=== PATIENT | female | born 1940 | race Caucasian/White ===

== ENCOUNTER 2016-11-23 22:59 | Emergency (ER) | payer MEDICARE, MEDICAID ==
[~2016-11-23] VITALS: Ht 157.5 cm; Wt 78.0 kg
[~2016-11-23 22:59] MED LIST: AMLO10TA80 PO; ASPI-1035 PO; ATOR20TA PO; BIMA2.5D4 OP; FURO40TA5 PO; GLIM4TAB2 PO; INSLIS SQ; LEVVL SQ; LINA5TAB PO; LOSA50TA20 PO; METO-300 PO; OMEP20CA10 PO
[2016-11-23] MEDS ORDERED: MORPHINE SULFATE 4 MG/ML CPJ (NOT FOR IM USE) IV STA (23:52)
[2016-11-23] MEDS ORDERED: SODIUM CHLORIDE 0.9% 1,000 ML IV ONE (23:52)
[2016-11-23] MEDS ORDERED: ONDANSETRON HCL 4MG/2ML VIAL IV STA (23:52)
[2016-11-24 00:09] LABS: BASOPHILS % 0.6 % (0.0-2.0); EOSINOPHILS % 2.7 % (0.0-5.0); HEMATOCRIT. 33.2 % (36.0-48.0); HEMOGLOBIN. 10.7 g/dL (12.0-16.0); LYMPHOCYTES % 17.6 % (20.0-50.0); MEAN CORPUSCULAR HEMOGLOBIN 28.9 pg (28.0-32.0); MEAN CORPUSCULAR HGB CONC 32.3 g/dL (31.0-37.0); MEAN CORPUSCULAR VOLUME 89.5 fL (81.0-99.0); MEAN PLATELET VOLUME 9.3 fl (7.4-10.4); MONOCYTES % 6.2 % (2.0-8.0); NEUTROPHILS % 72.9 % (40.0-76.0); PLATELET 162 x1000/uL (130-400); RED BLOOD CELL COUNT 3.71 mill/uL (4.2-5.4); RED CELL DISTRIBUTION WIDTH 20.6 % (11.6-14.6)
[2016-11-24 00:25] LABS: ALANINE AMINOTRANSFERASE 18 IU/L (13-61); ALBUMIN 3.9 g/dL (3.4-5.0); ANION GAP 13; CALCIUM 8.7 mg/dL (8.5-10.1); CARBON DIOXIDE 26 mEq/L (21-32); CHLORIDE 106 mEq/L (98-107); INDEX HEMOLYSI 1 (1-3); INDEX ICTERIC 1 (1-4); INDEX LIPEMIC 1 (1-3); LIPASE 228 IU/L (73-393); UREA NITROGEN BLOOD 29 mg/dL (7-21); eGFR 34 mL/min (>60)
[2016-11-24 00:26] LABS: PROTHROMBIN TIME 10.6 sec
[2016-11-24 00:58] LABS: CLARITY URINE CLEAR (CLEAR); COLOR URINE YELLOW (YELLOW); GLUCOSE URINE NEGATIVE (NEGATIVE); KETONES URINE NEGATIVE (NEGATIVE); LEUKOCYTE ESTERASE URINE NEGATIVE (NEGATIVE); NITRITE URINE NEGATIVE (NEGATIVE); OCCULT BLOOD URINE TRACE (NEGATIVE); PH URINE 5.5 (4.5-8.0); PROTEIN URINE 2+ (NEGATIVE); SPECIFIC GRAVITY URINE 1.016 (1.005-1.030); UROBILINOGEN URINE 0.2 E.U./dL (0.2-1.0)
[2016-11-24 01:00] LABS: BACTERIA URINE NONE SEEN; CALCIUM PHOSPHATE CRYSTALS UR NONE SEEN /lpf; RBC URINE NONE SEEN /hpf (0-2); SQUAMOUS EPITHELIAL CELL URINE NONE SEEN /lpf (RARE/1+); WAXY CASTS URINE NONE SEEN /lpf; WBC URINE 0-2 /hpf (0-2); YEAST URINE NONE SEEN
[2016-11-24] MEDS ORDERED: ALBUTEROL (0.083%) 2.5MG/3ML NEB HHN STA (02:23)
[2016-11-24] MEDS ORDERED: IPRATROPIUM BROMIDE (0.02%) 0.5MG/2.5ML NEB HHN STA (02:23)
[2016-11-24] MEDS ORDERED: MORPHINE SULFATE 4 MG/ML CPJ (NOT FOR IM USE) IV ONE (02:30)
[2016-11-24 03:31] VITALS: BP 143/58
== END 2016-11-24 03:41 | disposition home or self-care (01) ==
LOC: ER 23:01
DX: M54.5 Low back pain (principal); N28.9 Disorder of kidney and ureter, unspecified; J40 Bronchitis, not specified as acute or chronic; I73.9 Peripheral vascular disease, unspecified; I10 Essential (primary) hypertension; E11.9 Type 2 diabetes mellitus without complications; Z79.82 Long term (current) use of aspirin; Z79.4 Long term (current) use of insulin
CPT/HCPCS: 36415; 74176; 80053; 81001; 83605; 83690; 85025; 85610; 94644; 96361; 96374; 96375; 96376; 99285; J2270; J2405; J7030; J7611

== ENCOUNTER → 2017-07-31 | Day surgery (SDC) | payer MEDICARE, MEDICAID ==
[~2017-07-31] VITALS: Ht 154.9 cm; Wt 68.0 kg
[~2017-07-31] MED LIST changes: +ACETAMINOPHEN 325MG TABLET PO PRN; -ASPI-1035 PO; +ASPI-1159 PO; +FENTANYL CITRATE/PF 50MCG/ML 2ML VIAL ONE; +IODIXANOL 320MG/ML 100 ML BOTTLE IV ONE; +LIDOCAINE HCL 1% 20ML VIAL (Pyxis) INJ ONE; -METO-300 PO; +METO-411 PO; +MIDAZOLAM HCL 2 MG/2 ML VIAL ONE; +MORPHINE SULFATE 2 MG/ML CPJ (NOT FOR IM USE) IV PRN; +NIFE30TA94 PO; +ONDANSETRON HCL 4MG/2ML VIAL IV PRN
== END | disposition home or self-care (01) ==
LOC: CCL 08:02
PROVIDERS: ATTEND Specialist
DX: I70.202 Unspecified atherosclerosis of native arteries of extremities, left leg (principal); I45.10 Unspecified right bundle-branch block; I11.9 Hypertensive heart disease without heart failure; E78.5 Hyperlipidemia, unspecified; E11.51 Type 2 diabetes mellitus with diabetic peripheral angiopathy without gangrene; N28.9 Disorder of kidney and ureter, unspecified; Z79.4 Long term (current) use of insulin; Z79.82 Long term (current) use of aspirin; Z79.899 Other long term (current) drug therapy; Z79.01 Long term (current) use of anticoagulants
CPT/HCPCS: 36245; 75710; 82962; 99152; 99153; C1760; C1769; C1893; C1894; J1644; J2250; J3010; J3490; Q9967

== ENCOUNTER 2018-07-08 17:39 | Inpatient (IN) | payer MEDICARE, MEDICAID ==
[~2018-07-08] VITALS: Ht 165.1 cm; Wt 72.3 kg
[~2018-07-08 17:39] MED LIST changes: -ACETAMINOPHEN 325MG TABLET PO PRN; +CHOL500063 PO; -FENTANYL CITRATE/PF 50MCG/ML 2ML VIAL ONE; -IODIXANOL 320MG/ML 100 ML BOTTLE IV ONE; -LIDOCAINE HCL 1% 20ML VIAL (Pyxis) INJ ONE; -MIDAZOLAM HCL 2 MG/2 ML VIAL ONE; -MORPHINE SULFATE 2 MG/ML CPJ (NOT FOR IM USE) IV PRN; -ONDANSETRON HCL 4MG/2ML VIAL IV PRN
[2018-07-08] MEDS ORDERED: NITROGLYCERIN OINT 1GM/INCH UDPKT TD ONE (19:00)
[2018-07-08] MEDS ORDERED: ASPIRIN 81MG TABLET PO ONE (19:00)
[2018-07-08] MEDS ORDERED: FUROSEMIDE 40MG/4ML VIAL IV ONE (19:00)
[2018-07-08 19:15] LABS: CHLORIDE 103 mEq/L (98-107)
[2018-07-08 19:16] LABS: EOSINOPHILS % 2.1 % (0.0-5.0); HEMOGLOBIN. 10.6 g/dL (12.0-16.0); LYMPHOCYTES % 15.1 % (20.0-50.0); MEAN CORPUSCULAR HEMOGLOBIN 29.6 pg (28.0-32.0); MEAN CORPUSCULAR VOLUME 89.5 fL (81.0-99.0); MEAN PLATELET VOLUME 10.3 fl (7.4-10.4); MONOCYTES % 8.1 % (2.0-8.0); NEUTROPHILS % 73.7 % (40.0-76.0); PLATELET 187 x1000/uL (130-400); RED BLOOD CELL COUNT 3.58 mill/uL (4.2-5.4); RED CELL DISTRIBUTION WIDTH 16.3 % (11.6-14.6)
[2018-07-08 19:18] LABS: PARTIAL THROMBOPLASTIN TIME 23.8 sec (23.4-31.0)
[2018-07-09] VITALS (7 sets, daily range): BP systolic 130–159; BP diastolic 47–90
[2018-07-09] MEDS ORDERED: IOHEXOL-350 100 ML BOTTLE ONE (01:30)
[2018-07-09] MEDS ORDERED: HYDROCODONE/ACETAMINOPHEN 5/325MG TABLET PO PRN (04:00)
[2018-07-09] MEDS ORDERED: DEXTROSE 50% WATER 50ML SYRINGE IV PRN (04:00)
[2018-07-09] MEDS: OMEPRAZOLE 20MG CAPSULE EXTENDED RELEASE PO SCH (06:27)
[2018-07-09] MEDS: BLOOD SUGAR DIAGNOSTIC STRIP TEST SCH ×4 (06:27→21:29)
[2018-07-09] MEDS: INSULIN LISPRO 100 UNITS/ML SUBCUT SCH ×4 (07:53→21:28)
[2018-07-09] MEDS ORDERED: ENOXAPARIN 40MG/0.4ML SYR SUBCUT SCH (09:00)
[2018-07-09] MEDS ORDERED: MEDICATION NOT ON FORMULARY EA (Aspirin (Aspirin Low Dose) 1 TAB) PO SCH (09:00)
[2018-07-09] MEDS ORDERED: LOSARTAN POTASSIUM 50 MG TABLET PO SCH (09:00)
[2018-07-09] MEDS ORDERED: MEDICATION NOT ON FORMULARY EA (Nifedipine (Nifedipine Er) 1 TAB) PO SCH (09:00)
[2018-07-09] MEDS ORDERED: MEDICATION NOT ON FORMULARY EA (Losartan Potassium 50 MG) PO SCH (09:00)
[2018-07-09] MEDS ORDERED: MEDICATION NOT ON FORMULARY EA (Cholecalciferol (Vitamin D3) (Vitamin D3) 1 TAB) PO SCH (09:00)
[2018-07-09] MEDS ORDERED: NIFEDIPINE XL 30MG TAB PO SCH ×2 (09:00)
[2018-07-09] MEDS ORDERED: BIMATOPROST OP SCH (09:00)
[2018-07-09] MEDS ORDERED: MEDICATION NOT ON FORMULARY EA (Metoprolol Succinate 100 MG) PO SCH (09:00)
[2018-07-09] MEDS: CHOLECALCIFEROL (D3) 1000 UNIT TABLET PO SCH (09:22)
[2018-07-09] MEDS: ASPIRIN 81MG TABLET PO SCH (09:23)
[2018-07-09] MEDS: METOPROLOL TARTRATE 50MG TABLET PO SCH ×2 (09:23→21:27)
[2018-07-09] MEDS: FUROSEMIDE 40MG/4ML VIAL IVP SCH ×2 (09:23→21:27)
[2018-07-09] MEDS: LATANOPROST 0.005% OPHTH DROPS 2.5ML EACHEYE SCH (10:27)
[2018-07-09] MEDS: AMLODIPINE 10MG TABLET PO SCH (10:32)
[2018-07-09] MEDS ORDERED: CLONIDINE 0.2MG TABLET PO PRN (11:15)
[2018-07-09] MEDS ORDERED: CLONIDINE 0.1MG TABLET PO PRN (11:15)
[2018-07-09 11:38] LABS: CLARITY URINE CLOUDY (CLEAR); COLOR URINE DARK YELLOW (YELLOW); KETONES URINE NEGATIVE (NEGATIVE); LEUKOCYTE ESTERASE URINE 2+ (NEGATIVE); NITRITE URINE POSITIVE (NEGATIVE); OCCULT BLOOD URINE TRACE (NEGATIVE); PH URINE 5.5 (4.5-8.0); PROTEIN URINE 2+ (NEGATIVE); SPECIFIC GRAVITY URINE 1.036 (1.005-1.030)
[2018-07-09] MEDS: ENOXAPARIN 30MG/0.3ML SYR SUBCUT SCH (12:02)
[2018-07-09] MEDS: CEFTRIAXONE 1 G PREMIX 50 ML IV SCH (13:57)
[2018-07-09] MEDS ORDERED: ATORVASTATIN CALCIUM 20MG TABLET PO SCH (21:00)
[2018-07-09] MEDS ORDERED: MEDICATION NOT ON FORMULARY EA (Insulin Detemir (Levemir) 20 UNIT) SQ SCH (21:00)
[2018-07-09] MEDS ORDERED: INSULIN GLARGINE UD 100 UNITS/ML SYR SUBCUT SCH (22:00)
[2018-07-10] VITALS: BP 138/51
[2018-07-10 04:00] VITALS: BP 140/80
[2018-07-10] MEDS: BLOOD SUGAR DIAGNOSTIC STRIP TEST SCH ×2 (06:20→12:55)
[2018-07-10] MEDS: OMEPRAZOLE 20MG CAPSULE EXTENDED RELEASE PO SCH (06:20)
[2018-07-10 06:42] LABS: BASOPHILS % 0.7 % (0.0-2.0); EOSINOPHILS % 2.7 % (0.0-5.0); HEMATOCRIT. 28.6 % (36.0-48.0); HEMOGLOBIN. 9.6 g/dL (12.0-16.0); LYMPHOCYTES % 16.9 % (20.0-50.0); MEAN CORPUSCULAR HEMOGLOBIN 30.2 pg (28.0-32.0); MEAN CORPUSCULAR VOLUME 89.8 fL (81.0-99.0); MEAN PLATELET VOLUME 10.4 fl (7.4-10.4); MONOCYTES % 7.9 % (2.0-8.0); NEUTROPHILS % 71.8 % (40.0-76.0); PLATELET 169 x1000/uL (130-400); RED BLOOD CELL COUNT 3.19 mill/uL (4.2-5.4); RED CELL DISTRIBUTION WIDTH 15.7 % (11.6-14.6)
[2018-07-10 07:02] LABS: CREATINE KINASE MB FRACTION 1.3 ng/mL (0.5-3.6)
[2018-07-10 08:00] VITALS: BP 148/53
[2018-07-10] MEDS: CHOLECALCIFEROL (D3) 1000 UNIT TABLET PO SCH (08:45)
[2018-07-10] MEDS: ASPIRIN 81MG TABLET PO SCH (08:45)
[2018-07-10] MEDS: FUROSEMIDE 40MG/4ML VIAL IVP SCH (08:45)
[2018-07-10] MEDS: AMLODIPINE 10MG TABLET PO SCH (08:45)
[2018-07-10] MEDS: METOPROLOL TARTRATE 50MG TABLET PO SCH (08:46)
[2018-07-10] MEDS: LATANOPROST 0.005% OPHTH DROPS 2.5ML EACHEYE SCH (08:46)
[2018-07-10] MEDS: ENOXAPARIN 30MG/0.3ML SYR SUBCUT SCH (08:47)
[2018-07-10] MEDS: INSULIN LISPRO 100 UNITS/ML SUBCUT SCH ×2 (08:57→13:18)
[2018-07-10] MEDS ORDERED: NIFEDIPINE XL 60MG TAB PO SCH (09:00)
[2018-07-10] MEDS ORDERED: LACTULOSE 20G/30ML UDC PO PRN (11:30)
[2018-07-10] MEDS ORDERED: LACTULOSE 20G/30ML UDC PO NR (11:30)
[2018-07-10] MEDS ORDERED: DOCUSATE SODIUM 250MG CAPSULE PO SCH (11:30)
[2018-07-10 12:00] VITALS: BP 141/54
[2018-07-10] MEDS: CEFTRIAXONE 1 G PREMIX 50 ML IV SCH (12:51)
[2018-07-10 16:02] VITALS: BP 141/51
== END 2018-07-10 17:00 | disposition home or self-care (01) | DRG 291 ==
LOC: ER 17:39 → 6WST 21:27 → ENRESERV 23:53
PROVIDERS: ADMIT Internal Medicine; ATTEND Internal Medicine
DX: I13.0 Hypertensive heart and chronic kidney disease with heart failure and stage 1 through stage 4 chronic kidney disease, or unspecified chronic kidney disease (principal); I50.33 Acute on chronic diastolic (congestive) heart failure; N17.9 Acute kidney failure, unspecified; N39.0 Urinary tract infection, site not specified; I31.3 Pericardial effusion (noninflammatory); N18.9 Chronic kidney disease, unspecified; E78.5 Hyperlipidemia, unspecified; D64.9 Anemia, unspecified; E78.00 Pure hypercholesterolemia, unspecified; E11.22 Type 2 diabetes mellitus with diabetic chronic kidney disease; E11.51 Type 2 diabetes mellitus with diabetic peripheral angiopathy without gangrene; I08.0 Rheumatic disorders of both mitral and aortic valves; E66.9 Obesity, unspecified; Z79.84 Long term (current) use of oral hypoglycemic drugs; Z79.899 Other long term (current) drug therapy; Z79.4 Long term (current) use of insulin; Z79.82 Long term (current) use of aspirin; Z68.26 Body mass index [BMI] 26.0-26.9, adult
CPT/HCPCS: 36415; 71045; 71275; 80048; 80061; 82550; 82553; 82962; 83735; 83880; 84439; 84443; 84484; 85379; 87077; 87186; 93005; 93306; 93970; 96374; 97162; 99285; J0696; J1650; J1815; J1940; Q9967

== ENCOUNTER → 2020-07-05 | Outpatient (CLI) | payer MEDICARE, MEDICAID ==
[~2020-07-05] MED LIST changes: -ASPI-1159 PO; +ASPI-1497 PO; -GLIM4TAB2 PO; +GLIM4TAB36 PO; -LOSA50TA20 PO; +LOSA50TA41 PO; -OMEP20CA10 PO; +OMEP20CA14 PO
== END | disposition home or self-care (01) ==
LOC: LAB 09:21
PROVIDERS: ATTEND Specialist
DX: Z01.812 Encounter for preprocedural laboratory examination (principal); R05 Cough; Z20.828 Contact with and (suspected) exposure to other viral communicable diseases
CPT/HCPCS: 87426

== ENCOUNTER → 2020-09-14 | Outpatient (CLI) | payer MEDICARE, MEDICAID ==
[~2020-09-14] VITALS: Ht 154.9 cm; Wt 30.5 kg
[2020-09-14 11:53] VITALS: BP 156/63
== END | disposition home or self-care (01) ==
LOC: LAB 07:11
PROVIDERS: ATTEND Specialist
DX: R05 Cough (principal); Z20.822 Contact with and (suspected) exposure to COVID-19
CPT/HCPCS: 87426

== ENCOUNTER 2021-11-23 10:57 | Inpatient (IN) | payer MEDICARE, MEDICAID ==
[~2021-11-23] VITALS: Ht 152.4 cm; Wt 78.0 kg
[2021-11-23] MEDS ORDERED: LOSARTAN POTASSIUM 50 MG TABLET PO ONE (13:00)
[2021-11-23 15:13] LABS: BASOPHILS % 0.8 % (0.0-2.0); HEMATOCRIT. 28.5 % (36.0-48.0); HEMOGLOBIN. 9.5 g/dL (12.0-16.0); LYMPHOCYTES % 11.1 % (20.0-50.0); MEAN CORPUSCULAR HEMOGLOBIN 31.8 pg (28.0-32.0); MEAN CORPUSCULAR VOLUME 95.7 fL (81.0-99.0); MEAN PLATELET VOLUME 9.9 fl (7.4-10.4); MONOCYTES % 6.9 % (2.0-8.0); NEUTROPHILS % 78.2 % (40.0-76.0); PLATELET 204 x1000/uL (130-400); RED BLOOD CELL COUNT 2.98 mill/uL (4.2-5.4); RED CELL DISTRIBUTION WIDTH 15.3 % (11.6-14.6)
[2021-11-23 15:16] LABS: CHLORIDE 108 mEq/L (98-107)
[2021-11-23 16:00] LABS: PARTIAL THROMBOPLASTIN TIME 24.2 sec (23.4-31.0); PROTHROMBIN TIME 10.4 sec (9.6-11.0)
[2021-11-23] MEDS: METOPROLOL TARTRATE 50MG TABLET PO SCH (16:59)
[2021-11-23] MEDS ORDERED: SODIUM CHLORIDE 0.9% 500 ML IV ONE (19:00)
[2021-11-23] MEDS: ATORVASTATIN CALCIUM 20MG TABLET PO SCH (20:57)
[2021-11-23] MEDS: AMLODIPINE 5MG TABLET PO SCH (20:58)
[2021-11-23] MEDS ORDERED: IOHEXOL-350 100 ML BOTTLE ONE (22:06)
[2021-11-23] MEDS ORDERED: LORAZEPAM 2MG/ML CPJ IV PRN (23:00)
[2021-11-23] MEDS ORDERED: MORPHINE SULFATE 2 MG/ML CPJ (NOT FOR IM USE) IV PRN (23:00)
[2021-11-23] MEDS ORDERED: MAGNESIUM/ALUMINUM HYDROXIDE/SIMETHICONE 30ML UDC PO PRN (23:00)
[2021-11-23] MEDS ORDERED: HYDROCODONE/ACETAMINOPHEN 5/325MG TABLET PO PRN (23:00)
[2021-11-23] MEDS ORDERED: DIPHENHYDRAMINE 50MG/ML VIAL IV PRN (23:00)
[2021-11-23] MEDS ORDERED: DEXTROSE 50% WATER 50ML SYRINGE IV PRN (23:00)
[2021-11-23] MEDS ORDERED: GUAIFENESIN 200MG/10ML SUGAR FREE UDC PO PRN (23:00)
[2021-11-23] MEDS ORDERED: ONDANSETRON HCL 4MG/2ML INJ IV PRN (23:00)
[2021-11-23] MEDS ORDERED: DOCUSATE SODIUM 100MG CAPSULE PO PRN (23:00)
[2021-11-23] MEDS ORDERED: ENOXAPARIN 80MG/0.8ML SYR SUBCUT SCH (23:30)
[2021-11-24] MEDS ORDERED: ENOXAPARIN 60MG/0.6ML SYR SUBCUT NR (01:30)
[2021-11-24] MEDS ORDERED: ENOXAPARIN 80MG/0.8ML SYR SUBCUT SCH ×2 (01:30→21:00)
[2021-11-24 02:56] VITALS: BP 184/54
[2021-11-24 03:47] VITALS: BP 172/47
[2021-11-24] MEDS: SODIUM CHLORIDE 0.9% INJ 3ML FLUSH IVF SCH ×3 (06:41→22:00)
[2021-11-24] MEDS: INSULIN LISPRO 100 UNITS/ML SUBCUT SCH ×5 (06:41→21:00)
[2021-11-24] MEDS: BLOOD SUGAR DIAGNOSTIC STRIP TEST SCH ×4 (06:41→21:00)
[2021-11-24 08:00] VITALS: BP 165/62
[2021-11-24 08:09] LABS: BASOPHILS % 0.8 % (0.0-2.0); EOSINOPHILS % 3.3 % (0.0-5.0); MEAN CORPUSCULAR HEMOGLOBIN 31.6 pg (28.0-32.0); MEAN CORPUSCULAR VOLUME 95.4 fL (81.0-99.0); MEAN PLATELET VOLUME 9.9 fl (7.4-10.4); MONOCYTES % 9.1 % (2.0-8.0); NEUTROPHILS % 74.8 % (40.0-76.0); PLATELET 186 x1000/uL (130-400); RED BLOOD CELL COUNT 2.83 mill/uL (4.2-5.4); RED CELL DISTRIBUTION WIDTH 15.8 % (11.6-14.6)
[2021-11-24 08:16] LABS: CHLORIDE 106 mEq/L (98-107)
[2021-11-24] MEDS: ASPIRIN 81MG EC TABLET PO SCH (10:36)
[2021-11-24] MEDS: AMLODIPINE 5MG TABLET PO SCH ×2 (10:36→21:00)
[2021-11-24] MEDS: LOSARTAN POTASSIUM 50 MG TABLET PO SCH (10:36)
[2021-11-24] MEDS: METOPROLOL TARTRATE 50MG TABLET PO SCH ×2 (10:37→18:02)
[2021-11-24 12:00] VITALS: BP 173/60
[2021-11-24] MEDS: CLONIDINE 0.1MG TABLET PO SCH ×2 (13:47→22:00)
[2021-11-24 16:00] VITALS: BP 138/57
[2021-11-24] MEDS ORDERED: NALOXONE HCL 0.4MG/ML VIAL IV PRN (17:30)
[2021-11-24 19:01] LABS: CLARITY URINE CLEAR (CLEAR); COLOR URINE YELLOW (YELLOW); PH URINE 5.5 (4.5-8.0)
[2021-11-24 19:02] LABS: KETONES URINE NEGATIVE (NEGATIVE); LEUKOCYTE ESTERASE URINE TRACE (NEGATIVE); NITRITE URINE NEGATIVE (NEGATIVE); OCCULT BLOOD URINE TRACE (NEGATIVE); PROTEIN URINE 1+ (NEGATIVE); UROBILINOGEN URINE 0.2 E.U./dL (0.2-1.0)
[2021-11-24] MEDS ORDERED: ENOXAPARIN 60MG/0.6ML SYR SUBCUT SCH (21:00)
[2021-11-24] MEDS: ATORVASTATIN CALCIUM 20MG TABLET PO SCH (21:00)
[2021-11-25] MEDS: CLONIDINE 0.1MG TABLET PO SCH ×3 (06:00→22:44)
[2021-11-25] MEDS: BLOOD SUGAR DIAGNOSTIC STRIP TEST SCH ×4 (07:51→21:00)
[2021-11-25 08:00] VITALS: BP 135/46
[2021-11-25] MEDS: INSULIN LISPRO 100 UNITS/ML SUBCUT SCH ×4 (08:05→22:46)
[2021-11-25] MEDS: SODIUM CHLORIDE 0.9% INJ 3ML FLUSH IVF SCH ×3 (08:06→22:46)
[2021-11-25] MEDS: LOSARTAN POTASSIUM 50 MG TABLET PO SCH (09:15)
[2021-11-25] MEDS: AMLODIPINE 5MG TABLET PO SCH ×2 (09:15→22:44)
[2021-11-25] MEDS: ASPIRIN 81MG EC TABLET PO SCH (09:15)
[2021-11-25] MEDS: METOPROLOL TARTRATE 50MG TABLET PO SCH ×2 (09:15→16:30)
[2021-11-25] MEDS: LEVOFLOXACIN 250MG TABLET PO SCH (11:53)
[2021-11-25 12:00] VITALS: BP 135/79
[2021-11-25 16:00] VITALS: BP 132/82
[2021-11-25] MEDS: ENOXAPARIN 80MG/0.8ML SYR SUBCUT SCH (16:31)
[2021-11-25 20:00] VITALS: BP 131/66
[2021-11-25] MEDS: ATORVASTATIN CALCIUM 20MG TABLET PO SCH (22:44)
[2021-11-26] VITALS: BP 106/41
[2021-11-26 04:00] VITALS: BP 121/65
[2021-11-26] MEDS: SODIUM CHLORIDE 0.9% INJ 3ML FLUSH IVF SCH ×3 (06:45→22:36)
[2021-11-26] MEDS: CLONIDINE 0.1MG TABLET PO SCH (06:46)
[2021-11-26] MEDS: BLOOD SUGAR DIAGNOSTIC STRIP TEST SCH ×4 (06:46→21:00)
[2021-11-26] MEDS: INSULIN LISPRO 100 UNITS/ML SUBCUT SCH ×4 (06:48→22:34)
[2021-11-26 06:53] LABS: BASOPHILS % 0.5 % (0.0-2.0); EOSINOPHILS % 3.2 % (0.0-5.0); HEMATOCRIT. 24.4 % (36.0-48.0); LYMPHOCYTES % 15.4 % (20.0-50.0); MEAN CORPUSCULAR HEMOGLOBIN 31.1 pg (28.0-32.0); MEAN CORPUSCULAR VOLUME 95.3 fL (81.0-99.0); MEAN PLATELET VOLUME 10.5 fl (7.4-10.4); MONOCYTES % 9.1 % (2.0-8.0); NEUTROPHILS % 71.8 % (40.0-76.0); PLATELET 183 x1000/uL (130-400); RED BLOOD CELL COUNT 2.56 mill/uL (4.2-5.4); RED CELL DISTRIBUTION WIDTH 15.7 % (11.6-14.6)
[2021-11-26 08:00] VITALS: BP 141/46
[2021-11-26] MEDS ORDERED: SODIUM POLYSTYRENE SULFONATE 15 G/60 ML BOT PO NR (09:30)
[2021-11-26] MEDS: LEVOFLOXACIN 250MG TABLET PO SCH (10:20)
[2021-11-26] MEDS: AMLODIPINE 5MG TABLET PO SCH ×2 (10:20→22:30)
[2021-11-26] MEDS: METOPROLOL TARTRATE 50MG TABLET PO SCH ×2 (10:20→18:19)
[2021-11-26] MEDS: ASPIRIN 81MG EC TABLET PO SCH (10:22)
[2021-11-26 12:00] VITALS: BP 135/40
[2021-11-26] MEDS: NITROGLYCERIN OINT 1GM/INCH UDPKT TD SCH ×2 (12:56→18:20)
[2021-11-26] MEDS: SODIUM CHLORIDE 0.9% 1,000 ML IV SCH (13:08)
[2021-11-26 16:00] VITALS: BP 137/26
[2021-11-26 16:57] LABS: CREATINE KINASE 114 IU/L (26-192)
[2021-11-26] MEDS: ENOXAPARIN 80MG/0.8ML SYR SUBCUT SCH (18:18)
[2021-11-26] MEDS: CLONIDINE 0.1MG TABLET PO PRN (18:19)
[2021-11-26 20:00] VITALS: BP 146/54
[2021-11-26] MEDS: ATORVASTATIN CALCIUM 20MG TABLET PO SCH (22:30)
[2021-11-26] MEDS: EPOETIN ALFA-EPBX 10,000 UNIT/ML VIAL SUBCUT SCH (22:36)
[2021-11-27 00:30] VITALS: BP 129/49
[2021-11-27] MEDS: NITROGLYCERIN OINT 1GM/INCH UDPKT TD SCH ×8 (01:39→23:16)
[2021-11-27] MEDS: SODIUM CHLORIDE 0.9% 1,000 ML IV SCH ×3 (01:40→23:14)
[2021-11-27 04:00] VITALS: BP 131/56
[2021-11-27] MEDS: BLOOD SUGAR DIAGNOSTIC STRIP TEST SCH ×4 (06:06→20:20)
[2021-11-27] MEDS: SODIUM CHLORIDE 0.9% INJ 3ML FLUSH IVF SCH ×3 (06:18→23:16)
[2021-11-27] MEDS: INSULIN LISPRO 100 UNITS/ML SUBCUT SCH ×4 (06:23→20:26)
[2021-11-27 07:16] LABS: BASOPHILS % 0.3 % (0.0-2.0); EOSINOPHILS % 1.2 % (0.0-5.0); HEMATOCRIT. 24.1 % (36.0-48.0); HEMOGLOBIN. 7.9 g/dL (12.0-16.0); LYMPHOCYTES % 7.6 % (20.0-50.0); MEAN CORPUSCULAR HEMOGLOBIN 31.3 pg (28.0-32.0); MEAN CORPUSCULAR VOLUME 95.5 fL (81.0-99.0); MEAN PLATELET VOLUME 10.2 fl (7.4-10.4); MONOCYTES % 5.3 % (2.0-8.0); NEUTROPHILS % 85.6 % (40.0-76.0); PLATELET 171 x1000/uL (130-400); RED BLOOD CELL COUNT 2.52 mill/uL (4.2-5.4); RED CELL DISTRIBUTION WIDTH 15.5 % (11.6-14.6)
[2021-11-27 08:00] VITALS: BP 151/79
[2021-11-27] MEDS: ASPIRIN 81MG EC TABLET PO SCH (08:29)
[2021-11-27] MEDS: AMLODIPINE 5MG TABLET PO SCH ×2 (08:29→20:21)
[2021-11-27] MEDS: METOPROLOL TARTRATE 50MG TABLET PO SCH ×2 (08:32→16:45)
[2021-11-27] MEDS: LEVOFLOXACIN 250MG TABLET PO SCH (08:32)
[2021-11-27 12:00] VITALS: BP 110/37
[2021-11-27 16:00] VITALS: BP 128/34
[2021-11-27] MEDS: ENOXAPARIN 80MG/0.8ML SYR SUBCUT SCH (16:43)
[2021-11-27 20:00] VITALS: BP 146/48
[2021-11-27] MEDS: ATORVASTATIN CALCIUM 20MG TABLET PO SCH (20:20)
[2021-11-28] VITALS: BP 139/95
[2021-11-28 04:00] VITALS: BP 124/35
[2021-11-28] MEDS: NITROGLYCERIN OINT 1GM/INCH UDPKT TD SCH ×6 (05:20→23:22)
[2021-11-28] MEDS: SODIUM CHLORIDE 0.9% INJ 3ML FLUSH IVF SCH ×3 (05:20→22:00)
[2021-11-28] MEDS: BLOOD SUGAR DIAGNOSTIC STRIP TEST SCH ×4 (05:36→21:59)
[2021-11-28] MEDS: INSULIN LISPRO 100 UNITS/ML SUBCUT SCH ×4 (05:38→23:37)
[2021-11-28 08:00] VITALS: BP 131/37
[2021-11-28 08:14] LABS: BASOPHILS % 0.2 % (0.0-2.0); EOSINOPHILS % 0.6 % (0.0-5.0); HEMATOCRIT. 22.6 % (36.0-48.0); HEMOGLOBIN. 7.4 g/dL (12.0-16.0); LYMPHOCYTES % 7.6 % (20.0-50.0); MEAN CORPUSCULAR HEMOGLOBIN 31.3 pg (28.0-32.0); MEAN CORPUSCULAR VOLUME 95.9 fL (81.0-99.0); MEAN PLATELET VOLUME 10.4 fl (7.4-10.4); NEUTROPHILS % 85.6 % (40.0-76.0); PLATELET 154 x1000/uL (130-400); RED BLOOD CELL COUNT 2.35 mill/uL (4.2-5.4); RED CELL DISTRIBUTION WIDTH 15.3 % (11.6-14.6)
[2021-11-28] MEDS: LEVOFLOXACIN 250MG TABLET PO SCH (08:23)
[2021-11-28] MEDS: ASPIRIN 81MG EC TABLET PO SCH (08:23)
[2021-11-28] MEDS: METOPROLOL TARTRATE 50MG TABLET PO SCH ×2 (08:23→16:15)
[2021-11-28] MEDS: AMLODIPINE 5MG TABLET PO SCH ×2 (08:24→23:23)
[2021-11-28 08:53] LABS: PHOSPHORUS 4.7 mg/dL (2.5-4.9)
[2021-11-28] MEDS: SODIUM CHLORIDE 0.9% 1,000 ML IV SCH (11:44)
[2021-11-28 12:00] VITALS: BP 130/40
[2021-11-28] MEDS ORDERED: POTASSIUM CHLORIDE 10MEQ TABLET SR PO NR (12:00)
[2021-11-28 16:00] VITALS: BP 135/33
[2021-11-28] MEDS: ENOXAPARIN 80MG/0.8ML SYR SUBCUT SCH (16:16)
[2021-11-28 20:00] VITALS: BP 143/38
[2021-11-28] MEDS: ATORVASTATIN CALCIUM 20MG TABLET PO SCH (23:23)
[2021-11-29] VITALS: BP 140/39
[2021-11-29] MEDS: EPOETIN ALFA-EPBX 10,000 UNIT/ML VIAL SUBCUT SCH (02:17)
[2021-11-29 04:00] VITALS: BP 125/71
[2021-11-29] MEDS: NITROGLYCERIN OINT 1GM/INCH UDPKT TD SCH ×7 (06:00→22:11)
[2021-11-29] MEDS: BLOOD SUGAR DIAGNOSTIC STRIP TEST SCH ×4 (07:55→21:00)
[2021-11-29 08:00] VITALS: BP 125/70
[2021-11-29] MEDS: ASPIRIN 81MG EC TABLET PO SCH (08:07)
[2021-11-29] MEDS: AMLODIPINE 5MG TABLET PO SCH ×2 (08:07→22:09)
[2021-11-29] MEDS: METOPROLOL TARTRATE 50MG TABLET PO SCH ×2 (08:07→16:03)
[2021-11-29] MEDS: LEVOFLOXACIN 250MG TABLET PO SCH (08:08)
[2021-11-29 10:32] LABS: HEMATOCRIT. 22.2 % (36.0-48.0); HEMOGLOBIN. 7.1 g/dL (12.0-16.0); MEAN CORPUSCULAR HEMOGLOBIN 30.8 pg (28.0-32.0); MEAN CORPUSCULAR VOLUME 96.1 fL (81.0-99.0); MEAN PLATELET VOLUME 9.8 fl (7.4-10.4); PLATELET 168 x1000/uL (130-400); RED BLOOD CELL COUNT 2.31 mill/uL (4.2-5.4); RED CELL DISTRIBUTION WIDTH 15.2 % (11.6-14.6)
[2021-11-29 12:00] VITALS: BP 154/57
[2021-11-29] MEDS: SODIUM CHLORIDE 0.9% INJ 3ML FLUSH IVF SCH ×3 (12:35→22:10)
[2021-11-29] MEDS: INSULIN LISPRO 100 UNITS/ML SUBCUT SCH ×3 (12:52→22:12)
[2021-11-29 13:26] LABS: PLATELET ESTIMATE NORMAL
[2021-11-29] MEDS: ENOXAPARIN 80MG/0.8ML SYR SUBCUT SCH (13:51)
[2021-11-29 16:00] VITALS: BP 164/36
[2021-11-29] MEDS: HYDRALAZINE 20MG/ML VIAL IV PRN (16:02)
[2021-11-29] MEDS: SODIUM CHLORIDE 0.9% 1,000 ML IV SCH (16:56)
[2021-11-29 20:00] VITALS: BP 162/50
[2021-11-29] MEDS: ATORVASTATIN CALCIUM 20MG TABLET PO SCH (22:09)
[2021-11-29] MEDS: TRIAMCINOLONE ACETONIDE 0.1% CREAM 15GM TOP SCH (22:09)
[2021-11-29] MEDS: IPRATROPIUM/ALBUTEROL 0.5-3(2.5)MG/3ML NEB HHN PRN (22:30)
[2021-11-30] VITALS: BP 155/91
[2021-11-30 04:00] VITALS: BP 141/48
[2021-11-30] MEDS: SODIUM CHLORIDE 0.9% 1,000 ML IV SCH (04:17)
[2021-11-30] MEDS: NITROGLYCERIN OINT 1GM/INCH UDPKT TD SCH ×5 (05:35→17:01)
[2021-11-30] MEDS: BLOOD SUGAR DIAGNOSTIC STRIP TEST SCH ×4 (06:21→21:18)
[2021-11-30] MEDS: INSULIN LISPRO 100 UNITS/ML SUBCUT SCH ×4 (06:22→22:21)
[2021-11-30] MEDS: SODIUM CHLORIDE 0.9% INJ 3ML FLUSH IVF SCH ×4 (06:23→22:20)
[2021-11-30 07:21] LABS: MEAN CORPUSCULAR HEMOGLOBIN 30.6 pg (28.0-32.0); MEAN PLATELET VOLUME 9.7 fl (7.4-10.4); PLATELET 165 x1000/uL (130-400)
[2021-11-30 07:50] LABS: HEMATOCRIT. 20.1 % (36.0-48.0); HEMOGLOBIN. 6.4 g/dL (12.0-16.0)
[2021-11-30 08:00] VITALS: BP 145/78
[2021-11-30] MEDS: ASPIRIN 81MG EC TABLET PO SCH (08:41)
[2021-11-30] MEDS: METOPROLOL TARTRATE 50MG TABLET PO SCH ×2 (08:41→17:00)
[2021-11-30] MEDS: LEVOFLOXACIN 250MG TABLET PO SCH (08:41)
[2021-11-30] MEDS: AMLODIPINE 5MG TABLET PO SCH ×2 (08:41→21:18)
[2021-11-30 08:42] LABS: PLATELET ESTIMATE NORMAL
[2021-11-30] MEDS ORDERED: SODIUM CHLORIDE 0.45% 1,000 ML IV SCH (08:45)
[2021-11-30] MEDS: IPRATROPIUM/ALBUTEROL 0.5-3(2.5)MG/3ML NEB HHN PRN (09:27)
[2021-11-30] MEDS ORDERED: IPRATROPIUM/ALBUTEROL 0.5-3(2.5)MG/3ML NEB HHN NR (10:00)
[2021-11-30 12:00] VITALS: BP 120/54
[2021-11-30] MEDS: FUROSEMIDE 40MG/4ML VIAL IVP SCH (12:56)
[2021-11-30] MEDS: TRIAMCINOLONE ACETONIDE 0.1% CREAM 15GM TOP SCH ×2 (13:03→22:20)
[2021-11-30 16:00] VITALS: BP 158/64
[2021-11-30] MEDS: IPRATROPIUM/ALBUTEROL 0.5-3(2.5)MG/3ML NEB HHN SCH ×2 (16:10→21:21)
[2021-11-30] MEDS: ENOXAPARIN 80MG/0.8ML SYR SUBCUT SCH (16:30)
[2021-11-30 20:00] VITALS: BP 150/63
[2021-11-30] MEDS: ATORVASTATIN CALCIUM 20MG TABLET PO SCH (21:17)
[2021-11-30] MEDS: EPOETIN ALFA-EPBX 10,000 UNIT/ML VIAL SUBCUT SCH (21:18)
[2021-12-01] VITALS (12 sets, daily range): BP systolic 116–183; BP diastolic 54–82
[2021-12-01] MEDS: NITROGLYCERIN OINT 1GM/INCH UDPKT TD SCH ×4 (00:10→17:26)
[2021-12-01] MEDS: CLONIDINE 0.1MG TABLET PO PRN (01:33)
[2021-12-01] MEDS: IPRATROPIUM/ALBUTEROL 0.5-3(2.5)MG/3ML NEB HHN SCH ×4 (01:56→19:55)
[2021-12-01] MEDS: BLOOD SUGAR DIAGNOSTIC STRIP TEST SCH ×4 (05:33→21:32)
[2021-12-01] MEDS: INSULIN LISPRO 100 UNITS/ML SUBCUT SCH ×4 (05:33→21:42)
[2021-12-01 08:19] LABS: HEMATOCRIT. 23.9 % (36.0-48.0); HEMOGLOBIN. 7.8 g/dL (12.0-16.0); MEAN CORPUSCULAR HEMOGLOBIN 30.1 pg (28.0-32.0); MEAN CORPUSCULAR VOLUME 92.5 fL (81.0-99.0); MEAN PLATELET VOLUME 9.6 fl (7.4-10.4); PLATELET 166 x1000/uL (130-400); RED BLOOD CELL COUNT 2.58 mill/uL (4.2-5.4); RED CELL DISTRIBUTION WIDTH 17.3 % (11.6-14.6)
[2021-12-01] MEDS: TRIAMCINOLONE ACETONIDE 0.1% CREAM 15GM TOP SCH ×2 (09:00→21:41)
[2021-12-01] MEDS: FUROSEMIDE 40MG/4ML VIAL IVP SCH (09:47)
[2021-12-01] MEDS: AMLODIPINE 5MG TABLET PO SCH ×2 (09:47→21:41)
[2021-12-01] MEDS: METOPROLOL TARTRATE 50MG TABLET PO SCH ×2 (09:47→17:00)
[2021-12-01] MEDS: ASPIRIN 81MG EC TABLET PO SCH (09:47)
[2021-12-01 10:39] LABS: PLATELET ESTIMATE NORMAL
[2021-12-01] MEDS: SODIUM CHLORIDE 0.9% INJ 3ML FLUSH IVF SCH ×2 (14:00→21:41)
[2021-12-01] MEDS: ENOXAPARIN 80MG/0.8ML SYR SUBCUT SCH (17:00)
[2021-12-01] MEDS: ATORVASTATIN CALCIUM 20MG TABLET PO SCH (21:41)
[2021-12-01] MEDS ORDERED: AZITHROMYCIN 500 MG in DEXT 5% WATER 250 ML IV SCH (22:00)
[2021-12-02] MEDS: IPRATROPIUM/ALBUTEROL 0.5-3(2.5)MG/3ML NEB HHN SCH ×4 (00:55→21:20)
[2021-12-02] MEDS: NITROGLYCERIN OINT 1GM/INCH UDPKT TD SCH ×4 (01:02→17:03)
[2021-12-02 04:00] VITALS: BP 113/56
[2021-12-02] MEDS: IPRATROPIUM/ALBUTEROL 0.5-3(2.5)MG/3ML NEB HHN PRN (04:31)
[2021-12-02] MEDS: SODIUM CHLORIDE 0.9% INJ 3ML FLUSH IVF SCH ×3 (05:55→20:57)
[2021-12-02] MEDS: BLOOD SUGAR DIAGNOSTIC STRIP TEST SCH ×4 (06:00→20:49)
[2021-12-02] MEDS: INSULIN LISPRO 100 UNITS/ML SUBCUT SCH ×4 (06:12→20:49)
[2021-12-02] MEDS: ACETAMINOPHEN 325MG TABLET PO PRN ×2 (06:47→17:33)
[2021-12-02 08:00] VITALS: BP 151/55
[2021-12-02 08:14] LABS: HEMATOCRIT. 24.3 % (36.0-48.0); HEMOGLOBIN. 7.9 g/dL (12.0-16.0); MEAN CORPUSCULAR HEMOGLOBIN 30.4 pg (28.0-32.0); MEAN CORPUSCULAR VOLUME 93.3 fL (81.0-99.0); MEAN PLATELET VOLUME 9.9 fl (7.4-10.4); PLATELET 177 x1000/uL (130-400); RED BLOOD CELL COUNT 2.61 mill/uL (4.2-5.4); RED CELL DISTRIBUTION WIDTH 17.7 % (11.6-14.6)
[2021-12-02] MEDS: ASPIRIN 81MG EC TABLET PO SCH (08:46)
[2021-12-02] MEDS: AMLODIPINE 5MG TABLET PO SCH ×2 (08:46→20:49)
[2021-12-02] MEDS: FUROSEMIDE 40MG/4ML VIAL IVP SCH (08:46)
[2021-12-02] MEDS: TRIAMCINOLONE ACETONIDE 0.1% CREAM 15GM TOP SCH ×2 (08:46→20:49)
[2021-12-02] MEDS: METOPROLOL TARTRATE 50MG TABLET PO SCH ×2 (08:46→17:03)
[2021-12-02 10:04] LABS: PLATELET ESTIMATE NORMAL
[2021-12-02 12:00] VITALS: BP 97/54
[2021-12-02 16:00] VITALS: BP 158/79
[2021-12-02] MEDS: ENOXAPARIN 80MG/0.8ML SYR SUBCUT SCH (17:04)
[2021-12-02 20:00] VITALS: BP 145/72
[2021-12-02] MEDS: AZITHROMYCIN 500 MG in DEXT 5% WATER 250 ML IV SCH (20:46)
[2021-12-02] MEDS: ATORVASTATIN CALCIUM 20MG TABLET PO SCH (20:49)
[2021-12-03] VITALS: BP 149/53
[2021-12-03] MEDS: NITROGLYCERIN OINT 1GM/INCH UDPKT TD SCH ×5 (01:06→23:56)
[2021-12-03] MEDS: IPRATROPIUM/ALBUTEROL 0.5-3(2.5)MG/3ML NEB HHN SCH ×4 (02:41→21:02)
[2021-12-03 04:00] VITALS: BP 147/56
[2021-12-03] MEDS: BLOOD SUGAR DIAGNOSTIC STRIP TEST SCH ×4 (05:56→21:49)
[2021-12-03] MEDS: SODIUM CHLORIDE 0.9% INJ 3ML FLUSH IVF SCH ×3 (06:11→22:00)
[2021-12-03] MEDS: INSULIN LISPRO 100 UNITS/ML SUBCUT SCH ×4 (06:13→22:00)
[2021-12-03 06:29] LABS: HEMATOCRIT. 25.2 % (36.0-48.0); HEMOGLOBIN. 8.1 g/dL (12.0-16.0); MEAN CORPUSCULAR HEMOGLOBIN 30.3 pg (28.0-32.0); MEAN CORPUSCULAR VOLUME 94.7 fL (81.0-99.0); MEAN PLATELET VOLUME 10.2 fl (7.4-10.4); PLATELET 185 x1000/uL (130-400); RED BLOOD CELL COUNT 2.66 mill/uL (4.2-5.4); RED CELL DISTRIBUTION WIDTH 17.6 % (11.6-14.6)
[2021-12-03 08:00] VITALS: BP 145/67
[2021-12-03] MEDS: FUROSEMIDE 40MG/4ML VIAL IVP SCH (08:09)
[2021-12-03] MEDS: AMLODIPINE 5MG TABLET PO SCH ×2 (08:09→21:58)
[2021-12-03] MEDS: ASPIRIN 81MG EC TABLET PO SCH (08:09)
[2021-12-03] MEDS: TRIAMCINOLONE ACETONIDE 0.1% CREAM 15GM TOP SCH ×2 (08:10→21:58)
[2021-12-03] MEDS: METOPROLOL TARTRATE 50MG TABLET PO SCH (08:10)
[2021-12-03] MEDS: FUROSEMIDE 40MG/4 ML UDC PO SCH (09:00)
[2021-12-03 09:10] LABS: ANTI-NUCLEAR ANTIBODIES DIRECT Negative (Negative)
[2021-12-03 12:00] VITALS: BP 149/47
[2021-12-03] MEDS ORDERED: NITROGLYCERIN OINT 1GM/INCH UDPKT TD SCH (12:00)
[2021-12-03 16:11] VITALS: BP 149/55
[2021-12-03] MEDS: PANTOPRAZOLE SODIUM 40 MG/VIAL IV SCH (17:13)
[2021-12-03] MEDS: ENOXAPARIN 60MG/0.6ML SYR SUBCUT SCH (17:13)
[2021-12-03 18:10] LABS: TOTAL IRON BINDING CAPACITY 342 ug/dL (250-450)
[2021-12-03 18:33] LABS: FOLIC ACID (FOLATE) SERUM 12.1 ng/mL (>5.38)
[2021-12-03 19:12] LABS: PLATELET ESTIMATE NORMAL
[2021-12-03 20:00] VITALS: BP 139/48
[2021-12-03] MEDS: AZITHROMYCIN 500 MG in DEXT 5% WATER 250 ML IV SCH (21:58)
[2021-12-03] MEDS: ATORVASTATIN CALCIUM 20MG TABLET PO SCH (21:58)
[2021-12-04] VITALS: BP 153/58
[2021-12-04] MEDS: IPRATROPIUM/ALBUTEROL 0.5-3(2.5)MG/3ML NEB HHN SCH ×4 (01:45→20:26)
[2021-12-04 04:00] VITALS: BP 139/57
[2021-12-04] MEDS: SODIUM CHLORIDE 0.9% INJ 3ML FLUSH IVF SCH ×3 (05:44→22:02)
[2021-12-04] MEDS: BLOOD SUGAR DIAGNOSTIC STRIP TEST SCH ×4 (05:44→21:54)
[2021-12-04] MEDS: NITROGLYCERIN OINT 1GM/INCH UDPKT TD SCH ×3 (05:44→17:18)
[2021-12-04] MEDS: INSULIN LISPRO 100 UNITS/ML SUBCUT SCH ×4 (06:12→21:55)
[2021-12-04 06:13] LABS: HEMATOCRIT. 22.9 % (36.0-48.0); HEMOGLOBIN. 7.6 g/dL (12.0-16.0); MEAN CORPUSCULAR HEMOGLOBIN 30.4 pg (28.0-32.0); MEAN CORPUSCULAR VOLUME 91.7 fL (81.0-99.0); MEAN PLATELET VOLUME 9.3 fl (7.4-10.4); PLATELET 192 x1000/uL (130-400); RED CELL DISTRIBUTION WIDTH 17.5 % (11.6-14.6)
[2021-12-04 06:25] LABS: D-DIMER 1.7 mg/L FEU (<0.50); PARTIAL THROMBOPLASTIN TIME 29.9 sec (23.4-31.0); PROTHROMBIN TIME 10.8 sec (9.6-11.0)
[2021-12-04 08:00] VITALS: BP 150/49
[2021-12-04] MEDS: FUROSEMIDE 40MG/4 ML UDC PO SCH (08:15)
[2021-12-04] MEDS: AMLODIPINE 5MG TABLET PO SCH ×2 (08:16→21:54)
[2021-12-04] MEDS: PANTOPRAZOLE SODIUM 40 MG/VIAL IV SCH ×2 (08:16→21:53)
[2021-12-04] MEDS: TRIAMCINOLONE ACETONIDE 0.1% CREAM 15GM TOP SCH ×2 (08:16→22:02)
[2021-12-04] MEDS: ENOXAPARIN 60MG/0.6ML SYR SUBCUT SCH (08:16)
[2021-12-04] MEDS: ASPIRIN 81MG EC TABLET PO SCH (08:17)
[2021-12-04] MEDS: FUROSEMIDE 40MG/4ML VIAL IVP SCH ×2 (09:15→17:17)
[2021-12-04 09:21] LABS: BG BASE EXCESS -1.3 mmol/L (-2.0-2.0); BG CARBOXYHEMOGLOBIN 0.7 % (0.5-1.5); BG DEOXYHEMOGLOBIN 6.9 % (0.0-5.0); BG FRACTION INSPIRED OXYGEN 32; BG HCO3 ACT 23.7 mmol/L (22.0-26.0); BG METHEMOGLOBIN 0.3 % (0.0-1.5); BG OXYHEMOGLOBIN 92.1 % (94.0-97.0); BG PCO2 41.2 mmHg (35.0-45.0); BG PH 7.378 (7.350-7.450); BG PO2 68.5 mmHg (75.0-100.0); BG SAMPLE SITE LEFT BRACHIAL; BG TOTAL HEMOGLOBIN 7.8 g/dL (12.0-18.0); BG VENT MODE NASAL CANNULA
[2021-12-04 09:51] LABS: PLATELET ESTIMATE NORMAL
[2021-12-04 11:23] LABS: BG BASE EXCESS -1.4 mmol/L (-2.0-2.0); BG CARBOXYHEMOGLOBIN 0.3 % (0.5-1.5); BG FRACTION INSPIRED OXYGEN 21; BG HCO3 ACT 23.4 mmol/L (22.0-26.0); BG METHEMOGLOBIN 0.5 % (0.0-1.5); BG OXYGEN SATURATION 78.8 % (92.0-98.5); BG OXYHEMOGLOBIN 78.2 % (94.0-97.0); BG PCO2 39.8 mmHg (35.0-45.0); BG PH 7.388 (7.350-7.450); BG SAMPLE SITE LEFT BRACHIAL; BG TOTAL HEMOGLOBIN 8.5 g/dL (12.0-18.0); BG VENT MODE ROOM AIR
[2021-12-04 12:00] VITALS: BP 119/90
[2021-12-04] MEDS: POTASSIUM CHLORIDE 20MEQ TABLET SR PO SCH ×2 (12:13→17:17)
[2021-12-04 16:02] VITALS: BP 149/65
[2021-12-04] MEDS: FERROUS SULFATE 325MG TABLET PO SCH (17:18)
[2021-12-04 20:00] VITALS: BP 158/57
[2021-12-04] MEDS: AZITHROMYCIN 500 MG in DEXT 5% WATER 250 ML IV SCH (21:52)
[2021-12-04] MEDS: ATORVASTATIN CALCIUM 20MG TABLET PO SCH (21:53)
[2021-12-05] VITALS (9 sets, daily range): BP systolic 133–175; BP diastolic 36–85
[2021-12-05] MEDS: NITROGLYCERIN OINT 1GM/INCH UDPKT TD SCH ×5 (01:03→23:53)
[2021-12-05] MEDS: IPRATROPIUM/ALBUTEROL 0.5-3(2.5)MG/3ML NEB HHN SCH ×4 (01:12→21:07)
[2021-12-05] MEDS: HYDRALAZINE 20MG/ML VIAL IV PRN (04:31)
[2021-12-05 06:00] LABS: HEMATOCRIT. 26.7 % (36.0-48.0); HEMOGLOBIN. 8.9 g/dL (12.0-16.0); MEAN CORPUSCULAR HEMOGLOBIN 29.3 pg (28.0-32.0); MEAN CORPUSCULAR VOLUME 87.5 fL (81.0-99.0); MEAN PLATELET VOLUME 9.2 fl (7.4-10.4); PLATELET 207 x1000/uL (130-400); RED BLOOD CELL COUNT 3.05 mill/uL (4.2-5.4); RED CELL DISTRIBUTION WIDTH 18.2 % (11.6-14.6)
[2021-12-05] MEDS: SODIUM CHLORIDE 0.9% INJ 3ML FLUSH IVF SCH ×3 (06:25→20:55)
[2021-12-05] MEDS: BLOOD SUGAR DIAGNOSTIC STRIP TEST SCH ×4 (06:26→20:42)
[2021-12-05] MEDS: INSULIN LISPRO 100 UNITS/ML SUBCUT SCH ×4 (06:38→21:07)
[2021-12-05] MEDS: FUROSEMIDE 40MG/4ML VIAL IVP SCH ×2 (06:39→18:03)
[2021-12-05] MEDS ORDERED: POTASSIUM CHLORIDE 20MEQ/PACKET PO NR (08:30)
[2021-12-05] MEDS: TRIAMCINOLONE ACETONIDE 0.1% CREAM 15GM TOP SCH ×2 (09:00→21:06)
[2021-12-05] MEDS: FERROUS SULFATE 325MG TABLET PO SCH ×2 (09:33→18:03)
[2021-12-05] MEDS: ASPIRIN 81MG EC TABLET PO SCH (09:33)
[2021-12-05] MEDS: ASCORBIC ACID 500 MG TABLET PO SCH (09:33)
[2021-12-05] MEDS: POTASSIUM CHLORIDE 20MEQ TABLET SR PO SCH ×2 (09:33→18:03)
[2021-12-05] MEDS: METOPROLOL TARTRATE 25MG TABLET PO SCH ×2 (09:34→21:06)
[2021-12-05] MEDS: AMLODIPINE 5MG TABLET PO SCH ×2 (09:34→21:06)
[2021-12-05] MEDS: PANTOPRAZOLE SODIUM 40 MG/VIAL IV SCH ×2 (09:34→21:06)
[2021-12-05 13:40] LABS: PLATELET ESTIMATE NORMAL
[2021-12-05] MEDS ORDERED: LIDOCAINE HCL 1% 20ML VIAL (Pyxis) INJ ONE (15:11)
[2021-12-05] MEDS ORDERED: PROPOFOL 200MG/20ML VIAL IV ONE ×2 (15:11→15:37)
[2021-12-05 15:40] LABS: BASOPHILS % 0.3 % (0.0-2.0); EOSINOPHILS % 1.4 % (0.0-5.0); HEMATOCRIT. 28.8 % (36.0-48.0); HEMOGLOBIN. 9.4 g/dL (12.0-16.0); LYMPHOCYTES % 7.5 % (20.0-50.0); MEAN CORPUSCULAR HEMOGLOBIN 28.8 pg (28.0-32.0); MEAN CORPUSCULAR VOLUME 87.9 fL (81.0-99.0); MEAN PLATELET VOLUME 9.3 fl (7.4-10.4); MONOCYTES % 6.5 % (2.0-8.0); NEUTROPHILS % 84.3 % (40.0-76.0); PLATELET 212 x1000/uL (130-400); RED BLOOD CELL COUNT 3.28 mill/uL (4.2-5.4); RED CELL DISTRIBUTION WIDTH 18.3 % (11.6-14.6)
[2021-12-05 15:56] LABS: CHLORIDE 110 mEq/L (98-107)
[2021-12-05] MEDS: AZITHROMYCIN 500 MG in DEXT 5% WATER 250 ML IV SCH (20:56)
[2021-12-05] MEDS: ATORVASTATIN CALCIUM 20MG TABLET PO SCH (21:06)
[2021-12-06] VITALS: BP 138/50
[2021-12-06] MEDS: IPRATROPIUM/ALBUTEROL 0.5-3(2.5)MG/3ML NEB HHN SCH ×3 (01:42→13:05)
[2021-12-06 04:00] VITALS: BP 153/53
[2021-12-06] MEDS: SODIUM CHLORIDE 0.9% INJ 3ML FLUSH IVF SCH ×2 (06:00→17:12)
[2021-12-06] MEDS: NITROGLYCERIN OINT 1GM/INCH UDPKT TD SCH (06:01)
[2021-12-06] MEDS: BLOOD SUGAR DIAGNOSTIC STRIP TEST SCH ×3 (06:06→17:13)
[2021-12-06 06:14] LABS: HEMATOCRIT. 25.2 % (36.0-48.0); HEMOGLOBIN. 8.5 g/dL (12.0-16.0); MEAN CORPUSCULAR HEMOGLOBIN 29.6 pg (28.0-32.0); MEAN CORPUSCULAR VOLUME 88.4 fL (81.0-99.0); PLATELET 177 x1000/uL (130-400); RED BLOOD CELL COUNT 2.85 mill/uL (4.2-5.4); RED CELL DISTRIBUTION WIDTH 18.8 % (11.6-14.6)
[2021-12-06 06:23] LABS: CHLORIDE 109 mEq/L (98-107)
[2021-12-06] MEDS: FUROSEMIDE 40MG/4ML VIAL IVP SCH ×2 (06:44→17:12)
[2021-12-06] MEDS: INSULIN LISPRO 100 UNITS/ML SUBCUT SCH ×3 (06:49→17:13)
[2021-12-06 08:00] VITALS: BP 166/57
[2021-12-06] MEDS: PANTOPRAZOLE SODIUM 40 MG/VIAL IV SCH (08:07)
[2021-12-06] MEDS: AMLODIPINE 5MG TABLET PO SCH (08:08)
[2021-12-06] MEDS: TRIAMCINOLONE ACETONIDE 0.1% CREAM 15GM TOP SCH (08:08)
[2021-12-06] MEDS: POTASSIUM CHLORIDE 20MEQ TABLET SR PO SCH ×2 (08:08→17:12)
[2021-12-06] MEDS: ASPIRIN 81MG EC TABLET PO SCH (08:08)
[2021-12-06] MEDS: METOPROLOL TARTRATE 25MG TABLET PO SCH (08:08)
[2021-12-06] MEDS: ASCORBIC ACID 500 MG TABLET PO SCH (08:08)
[2021-12-06] MEDS: FERROUS SULFATE 325MG TABLET PO SCH ×2 (08:08→17:12)
[2021-12-06 08:55] LABS: NUCLEATED RED BLOOD CELLS 1 /100 WBC
[2021-12-06 08:57] LABS: PLATELET ESTIMATE NORMAL
[2021-12-06] MEDS ORDERED: ISOSORBIDE MONONITRATE 60MG TABLET SR 24HR PO SCH (09:00)
[2021-12-06 12:06] VITALS: BP 150/43
[2021-12-06 13:45] VITALS: BP 133/61
[2021-12-06 16:13] VITALS: BP 133/61
== END 2021-12-06 18:55 | disposition home health service (06) | DRG 299 ==
LOC: ER 11:38 → 8WST 17:41 → ENRESERV 21:01
PROVIDERS: ADMIT Internal Medicine; ATTEND Internal Medicine
PROC: 0W3P8ZZ Control Bleeding in Gastrointestinal Tract, Via Natural or Artificial Opening Endoscopic (ICD-10-PCS; principal; 2021-12-05)
PROC: 30233N1 Transfusion of Nonautologous Red Blood Cells into Peripheral Vein, Percutaneous Approach (ICD-10-PCS; 2021-12-05)
DX: I70.203 Unspecified atherosclerosis of native arteries of extremities, bilateral legs (principal); K29.71 Gastritis, unspecified, with bleeding; K31.811 Angiodysplasia of stomach and duodenum with bleeding; N17.9 Acute kidney failure, unspecified; T82.868A Thrombosis due to vascular prosthetic devices, implants and grafts, initial encounter; D64.9 Anemia, unspecified; E11.22 Type 2 diabetes mellitus with diabetic chronic kidney disease; E11.40 Type 2 diabetes mellitus with diabetic neuropathy, unspecified; E78.5 Hyperlipidemia, unspecified; F03.90 Unspecified dementia, unspecified severity, without behavioral disturbance, psychotic disturbance, mood disturbance, and anxiety; I08.0 Rheumatic disorders of both mitral and aortic valves; I27.20 Pulmonary hypertension, unspecified; I45.10 Unspecified right bundle-branch block; E87.6 Hypokalemia; K44.9 Diaphragmatic hernia without obstruction or gangrene; E78.00 Pure hypercholesterolemia, unspecified; L40.9 Psoriasis, unspecified; M85.872 Other specified disorders of bone density and structure, left ankle and foot; R00.1 Bradycardia, unspecified; I25.10 Atherosclerotic heart disease of native coronary artery without angina pectoris; R09.02 Hypoxemia; E11.65 Type 2 diabetes mellitus with hyperglycemia; Y83.2 Surgical operation with anastomosis, bypass or graft as the cause of abnormal reaction of the patient, or of later complication, without mention of misadventure at the time of the procedure; I13.10 Hypertensive heart and chronic kidney disease without heart failure, with stage 1 through stage 4 chronic kidney disease, or unspecified chronic kidney disease; Z20.822 Contact with and (suspected) exposure to COVID-19; N18.30 Chronic kidney disease, stage 3 unspecified; Z95.820 Peripheral vascular angioplasty status with implants and grafts; Z79.02 Long term (current) use of antithrombotics/antiplatelets; Z79.82 Long term (current) use of aspirin; Z87.891 Personal history of nicotine dependence; Z79.899 Other long term (current) drug therapy; I25.2 Old myocardial infarction; Y92.89 Other specified places as the place of occurrence of the external cause
CPT/HCPCS: 36415; 36600; 71045; 73630; 75635; 76770; 78582; 80048; 80053; 81003; 82270; 82375; 82550; 82607; 82728; 82746; 82805; 82962; 83540; 83550; 83735; 83880; 84100; 84484; 85025; 85044; 85379; 86038; 86160; 86850; 86870; 86900; 86920; 87426; 93005; 93306; 93923; 93970; 94640; 99285; A9558; C9113; J0360; J0456; J0885; J1650; J1815; J1940; J2704; J3490; J7030; J7040; J7060; P9016; Q9967

== ENCOUNTER 2022-02-01 10:28 | Inpatient (IN) | payer MEDICARE, MEDICAID ==
[~2022-02-01] VITALS: Ht 152.4 cm; Wt 75.0 kg
[~2022-02-01 10:28] MED LIST changes: +CLOP-31 PO; +NIFE-32 PO
[2022-02-01 11:28] LABS: CLARITY URINE CLEAR (CLEAR); COLOR URINE YELLOW (YELLOW); KETONES URINE NEGATIVE (NEGATIVE); LEUKOCYTE ESTERASE URINE NEGATIVE (NEGATIVE); NITRITE URINE NEGATIVE (NEGATIVE); OCCULT BLOOD URINE NEGATIVE (NEGATIVE); PROTEIN URINE NEGATIVE (NEGATIVE); SPECIFIC GRAVITY URINE 1.007 (1.005-1.030); UROBILINOGEN URINE 0.2 E.U./dL (0.2-1.0)
[2022-02-01] MEDS ORDERED: AMLODIPINE 5MG TABLET PO ONE (11:30)
[2022-02-01 11:32] LABS: BASOPHILS % 0.9 % (0.0-2.0); EOSINOPHILS % 1.6 % (0.0-5.0); LYMPHOCYTES % 21.1 % (20.0-50.0); MEAN CORPUSCULAR HEMOGLOBIN 30.3 pg (28.0-32.0); MEAN CORPUSCULAR VOLUME 93.8 fL (81.0-99.0); MEAN PLATELET VOLUME 7.3 fl (7.4-10.4); MONOCYTES % 7.1 % (2.0-8.0); NEUTROPHILS % 69.3 % (40.0-76.0); PLATELET 239 x1000/uL (130-400); RED BLOOD CELL COUNT 2.26 mill/uL (4.2-5.4); RED CELL DISTRIBUTION WIDTH 18.5 % (11.6-14.6)
[2022-02-01 11:40] LABS: HEMOGLOBIN. 6.8 g/dL (12.0-16.0)
[2022-02-01 11:41] LABS: HEMATOCRIT. 21.2 % (36.0-48.0)
[2022-02-01 11:43] LABS: CHLORIDE 109 mEq/L (98-107)
[2022-02-01] MEDS: METOPROLOL TARTRATE 25MG TABLET PO SCH ×2 (12:23→17:29)
[2022-02-01] MEDS ORDERED: HYDROCODONE/ACETAMINOPHEN 5/325MG TABLET PO PRN (12:30)
[2022-02-01] MEDS ORDERED: ONDANSETRON HCL 4MG/2ML INJ IV PRN (12:30)
[2022-02-01] MEDS ORDERED: GUAIFENESIN 200MG/10ML SUGAR FREE UDC PO PRN (12:30)
[2022-02-01] MEDS ORDERED: ACETAMINOPHEN 325MG TABLET PO PRN (12:30)
[2022-02-01] MEDS ORDERED: MAGNESIUM/ALUMINUM HYDROXIDE/SIMETHICONE 30ML UDC PO PRN (12:30)
[2022-02-01] MEDS ORDERED: DOCUSATE SODIUM 100MG CAPSULE PO PRN (12:30)
[2022-02-01] MEDS ORDERED: DIPHENHYDRAMINE 50MG/ML VIAL IV PRN (12:30)
[2022-02-01] MEDS ORDERED: IPRATROPIUM/ALBUTEROL 0.5-3(2.5)MG/3ML NEB NEB PRN (12:30)
[2022-02-01] MEDS ORDERED: NA PHOS,M-B/NA PHOS,DI-BA ENEMA 118ML PR PRN (12:30)
[2022-02-01 14:26] LABS: PROTHROMBIN TIME 10.9 sec (9.6-11.0)
[2022-02-01 14:30] LABS: TOTAL IRON BINDING CAPACITY 251 ug/dL (250-450)
[2022-02-01 15:10] LABS: FOLIC ACID (FOLATE) SERUM 10.6 ng/mL (>5.38)
[2022-02-01 15:31] VITALS: BP 183/53
[2022-02-01] MEDS ORDERED: LEVVL SQ (15:56)
[2022-02-01] MEDS ORDERED: ATOR20TA65 PO (15:56)
[2022-02-01] MEDS ORDERED: GABA-529 PO (15:56)
[2022-02-01] MEDS ORDERED: GLIM4TAB36 PO (15:56)
[2022-02-01] MEDS ORDERED: FERR325T30 PO (15:56)
[2022-02-01] MEDS ORDERED: BIMA2.5D4 EACHEYE (15:59)
[2022-02-01] MEDS ORDERED: PANT40TA51 PO (15:59)
[2022-02-01] MEDS ORDERED: INSU100V40 (15:59)
[2022-02-01] MEDS ORDERED: METO-411 PO (15:59)
[2022-02-01] MEDS ORDERED: LINA5TAB PO (15:59)
[2022-02-01 16:00] VITALS: BP 155/61
[2022-02-01] MEDS: CLONIDINE 0.1MG TABLET PO PRN (16:17)
[2022-02-01] MEDS: SODIUM CHLORIDE 0.45% 1,000 ML IV SCH (16:34)
[2022-02-01 20:00] VITALS: BP 158/56
[2022-02-01] MEDS ORDERED: DEXTROSE 50% WATER 50ML SYRINGE IV PRN (20:00)
[2022-02-01] MEDS ORDERED: NALOXONE HCL 0.4MG/ML VIAL IV PRN (20:00)
[2022-02-01] MEDS: INSULIN LISPRO 100 UNITS/ML SUBCUT SCH (21:00)
[2022-02-01] MEDS: BLOOD SUGAR DIAGNOSTIC STRIP TEST SCH (21:02)
[2022-02-01] MEDS: ATORVASTATIN CALCIUM 20MG TABLET PO SCH (21:04)
[2022-02-01] MEDS: AMLODIPINE 5MG TABLET PO SCH (21:07)
[2022-02-02] VITALS (14 sets, daily range): BP systolic 146–158; BP diastolic 41–65
[2022-02-02] MEDS: INSULIN LISPRO 100 UNITS/ML SUBCUT SCH ×4 (05:06→20:46)
[2022-02-02] MEDS: BLOOD SUGAR DIAGNOSTIC STRIP TEST SCH ×4 (05:06→20:33)
[2022-02-02 07:54] LABS: CHLORIDE 105 mEq/L (98-107)
[2022-02-02 07:56] LABS: BASOPHILS % 0.6 % (0.0-2.0); EOSINOPHILS % 2.6 % (0.0-5.0); LYMPHOCYTES % 21.7 % (20.0-50.0); MEAN CORPUSCULAR HEMOGLOBIN 30.6 pg (28.0-32.0); MEAN CORPUSCULAR VOLUME 95.6 fL (81.0-99.0); MEAN PLATELET VOLUME 8.4 fl (7.4-10.4); MONOCYTES % 8.2 % (2.0-8.0); NEUTROPHILS % 66.9 % (40.0-76.0); PLATELET 222 x1000/uL (130-400); RED BLOOD CELL COUNT 2.15 mill/uL (4.2-5.4); RED CELL DISTRIBUTION WIDTH 18.4 % (11.6-14.6)
[2022-02-02 08:02] LABS: HEMATOCRIT. 20.6 % (36.0-48.0); HEMOGLOBIN. 6.6 g/dL (12.0-16.0)
[2022-02-02 08:03] LABS: PHOSPHORUS 3.3 mg/dL (2.5-4.9)
[2022-02-02] MEDS: AMLODIPINE 5MG TABLET PO SCH ×2 (10:10→20:37)
[2022-02-02] MEDS: LOSARTAN POTASSIUM 50 MG TABLET PO SCH (10:10)
[2022-02-02] MEDS: ISOSORBIDE MONONITRATE 60MG TABLET SR 24HR PO SCH (10:11)
[2022-02-02] MEDS: SODIUM CHLORIDE 0.45% 1,000 ML IV SCH (10:12)
[2022-02-02] MEDS: METOPROLOL TARTRATE 25MG TABLET PO SCH ×2 (10:12→17:43)
[2022-02-02] MEDS: ATORVASTATIN CALCIUM 20MG TABLET PO SCH (20:36)
[2022-02-02] MEDS: IRON SUCROSE COMPLEX 100 MG/5 ML ML IV SCH (20:37)
[2022-02-03] VITALS: BP 172/63
[2022-02-03] MEDS: CLONIDINE 0.1MG TABLET PO PRN ×2 (00:39→21:27)
[2022-02-03 04:00] VITALS: BP 161/57
[2022-02-03] MEDS: BLOOD SUGAR DIAGNOSTIC STRIP TEST SCH ×4 (06:54→21:29)
[2022-02-03] MEDS: INSULIN LISPRO 100 UNITS/ML SUBCUT SCH ×4 (06:55→21:00)
[2022-02-03 07:12] LABS: BASOPHILS % 0.6 % (0.0-2.0); EOSINOPHILS % 1.9 % (0.0-5.0); HEMATOCRIT. 27.9 % (36.0-48.0); HEMOGLOBIN. 9.3 g/dL (12.0-16.0); LYMPHOCYTES % 21.8 % (20.0-50.0); MEAN CORPUSCULAR HEMOGLOBIN 30.2 pg (28.0-32.0); MEAN CORPUSCULAR VOLUME 90.5 fL (81.0-99.0); MEAN PLATELET VOLUME 8.1 fl (7.4-10.4); MONOCYTES % 8.7 % (2.0-8.0); PLATELET 200 x1000/uL (130-400); RED BLOOD CELL COUNT 3.08 mill/uL (4.2-5.4); RED CELL DISTRIBUTION WIDTH 16.7 % (11.6-14.6)
[2022-02-03 08:00] VITALS: BP 170/60
[2022-02-03] MEDS: ISOSORBIDE MONONITRATE 60MG TABLET SR 24HR PO SCH (08:29)
[2022-02-03] MEDS: METOPROLOL TARTRATE 25MG TABLET PO SCH ×2 (08:29→18:10)
[2022-02-03] MEDS: AMLODIPINE 5MG TABLET PO SCH (08:30)
[2022-02-03] MEDS: LOSARTAN POTASSIUM 50 MG TABLET PO SCH ×3 (08:30→22:45)
[2022-02-03] MEDS: SODIUM CHLORIDE 0.45% 1,000 ML IV SCH (10:02)
[2022-02-03 12:00] VITALS: BP 154/49
[2022-02-03] MEDS ORDERED: CLONIDINE 0.2MG TABLET PO PRN (12:15)
[2022-02-03] MEDS: NIFEDIPINE XL 90MG TAB PO SCH (13:04)
[2022-02-03 16:00] VITALS: BP 157/48
[2022-02-03 20:00] VITALS: BP 165/67
[2022-02-03] MEDS: IRON SUCROSE COMPLEX 100 MG/5 ML ML IV SCH (21:26)
[2022-02-03] MEDS: ATORVASTATIN CALCIUM 20MG TABLET PO SCH (21:26)
[2022-02-04] VITALS: BP 122/54
[2022-02-04] MEDS: SODIUM CHLORIDE 0.45% 1,000 ML IV SCH (00:30)
[2022-02-04 04:00] VITALS: BP 162/60
[2022-02-04] MEDS: INSULIN LISPRO 100 UNITS/ML SUBCUT SCH ×4 (05:54→21:00)
[2022-02-04] MEDS: BLOOD SUGAR DIAGNOSTIC STRIP TEST SCH ×4 (05:54→21:00)
[2022-02-04] MEDS: CLONIDINE 0.1MG TABLET PO PRN ×2 (05:55→16:31)
[2022-02-04 06:23] LABS: BASOPHILS % 0.8 % (0.0-2.0); EOSINOPHILS % 2.5 % (0.0-5.0); HEMATOCRIT. 28.8 % (36.0-48.0); HEMOGLOBIN. 9.7 g/dL (12.0-16.0); LYMPHOCYTES % 19.3 % (20.0-50.0); MEAN CORPUSCULAR HEMOGLOBIN 30.5 pg (28.0-32.0); MEAN CORPUSCULAR VOLUME 90.9 fL (81.0-99.0); MEAN PLATELET VOLUME 8.3 fl (7.4-10.4); MONOCYTES % 9.7 % (2.0-8.0); NEUTROPHILS % 67.7 % (40.0-76.0); PLATELET 194 x1000/uL (130-400); RED BLOOD CELL COUNT 3.17 mill/uL (4.2-5.4); RED CELL DISTRIBUTION WIDTH 16.7 % (11.6-14.6)
[2022-02-04 08:00] VITALS: BP 123/45
[2022-02-04] MEDS: NIFEDIPINE XL 90MG TAB PO SCH (09:52)
[2022-02-04] MEDS: LOSARTAN POTASSIUM 50 MG TABLET PO SCH ×2 (09:53→22:04)
[2022-02-04] MEDS: ISOSORBIDE MONONITRATE 60MG TABLET SR 24HR PO SCH (09:53)
[2022-02-04] MEDS: METOPROLOL TARTRATE 25MG TABLET PO SCH ×2 (09:54→18:18)
[2022-02-04] MEDS: FUROSEMIDE 40MG TABLET PO SCH (09:54)
[2022-02-04 12:00] VITALS: BP 117/57
[2022-02-04 16:00] VITALS: BP 166/57
[2022-02-04 20:00] VITALS: BP 124/89
[2022-02-04] MEDS: ATORVASTATIN CALCIUM 20MG TABLET PO SCH (22:04)
[2022-02-04] MEDS: IRON SUCROSE COMPLEX 100 MG/5 ML ML IV SCH (22:04)
[2022-02-05] VITALS: BP 131/84
[2022-02-05 04:00] VITALS: BP 131/45
[2022-02-05] MEDS: BLOOD SUGAR DIAGNOSTIC STRIP TEST SCH (06:15)
[2022-02-05] MEDS: INSULIN LISPRO 100 UNITS/ML SUBCUT SCH (07:19)
[2022-02-05 07:21] LABS: PHOSPHORUS 3.3 mg/dL (2.5-4.9)
[2022-02-05 07:30] LABS: BASOPHILS % 0.6 % (0.0-2.0); EOSINOPHILS % 2.1 % (0.0-5.0); HEMATOCRIT. 27.5 % (36.0-48.0); HEMOGLOBIN. 9.2 g/dL (12.0-16.0); LYMPHOCYTES % 19.8 % (20.0-50.0); MEAN CORPUSCULAR HEMOGLOBIN 30.3 pg (28.0-32.0); MEAN CORPUSCULAR VOLUME 90.7 fL (81.0-99.0); MEAN PLATELET VOLUME 8.5 fl (7.4-10.4); MONOCYTES % 7.9 % (2.0-8.0); NEUTROPHILS % 69.6 % (40.0-76.0); PLATELET 201 x1000/uL (130-400); RED BLOOD CELL COUNT 3.03 mill/uL (4.2-5.4); RED CELL DISTRIBUTION WIDTH 16.2 % (11.6-14.6)
[2022-02-05 08:00] VITALS: BP 154/49
[2022-02-05] MEDS: NIFEDIPINE XL 90MG TAB PO SCH (08:11)
[2022-02-05] MEDS: FUROSEMIDE 40MG TABLET PO SCH (08:11)
[2022-02-05] MEDS: METOPROLOL TARTRATE 25MG TABLET PO SCH (08:12)
[2022-02-05] MEDS: ISOSORBIDE MONONITRATE 60MG TABLET SR 24HR PO SCH (08:12)
[2022-02-05] MEDS: LOSARTAN POTASSIUM 50 MG TABLET PO SCH (08:12)
[2022-02-05 08:41] VITALS: BP 154/49
== END 2022-02-05 11:25 | disposition home health service (06) | DRG 377 ==
LOC: ER 10:28 → 8WST 11:25 → UNDOADMIN 11:25 → 8WST 11:51 → ENRESERV 12:39
PROVIDERS: ADMIT Internal Medicine; ATTEND Internal Medicine
PROC: 30233N1 Transfusion of Nonautologous Red Blood Cells into Peripheral Vein, Percutaneous Approach (ICD-10-PCS; principal; 2022-02-02)
DX: K31.811 Angiodysplasia of stomach and duodenum with bleeding (principal); G93.41 Metabolic encephalopathy; I13.0 Hypertensive heart and chronic kidney disease with heart failure and stage 1 through stage 4 chronic kidney disease, or unspecified chronic kidney disease; E46 Unspecified protein-calorie malnutrition; I96 Gangrene, not elsewhere classified; L03.116 Cellulitis of left lower limb; E11.52 Type 2 diabetes mellitus with diabetic peripheral angiopathy with gangrene; K92.1 Melena; E11.22 Type 2 diabetes mellitus with diabetic chronic kidney disease; F03.90 Unspecified dementia, unspecified severity, without behavioral disturbance, psychotic disturbance, mood disturbance, and anxiety; I25.10 Atherosclerotic heart disease of native coronary artery without angina pectoris; E78.5 Hyperlipidemia, unspecified; L97.529 Non-pressure chronic ulcer of other part of left foot with unspecified severity; D50.9 Iron deficiency anemia, unspecified; E78.00 Pure hypercholesterolemia, unspecified; F17.200 Nicotine dependence, unspecified, uncomplicated; E11.42 Type 2 diabetes mellitus with diabetic polyneuropathy; K21.9 Gastro-esophageal reflux disease without esophagitis; M19.90 Unspecified osteoarthritis, unspecified site; R53.81 Other malaise; I50.9 Heart failure, unspecified; N18.32 Chronic kidney disease, stage 3b; Z20.822 Contact with and (suspected) exposure to COVID-19; Z79.02 Long term (current) use of antithrombotics/antiplatelets; Z98.61 Coronary angioplasty status; Z79.4 Long term (current) use of insulin; Z79.82 Long term (current) use of aspirin; Z79.84 Long term (current) use of oral hypoglycemic drugs; Z79.899 Other long term (current) drug therapy; Z82.49 Family history of ischemic heart disease and other diseases of the circulatory system; Z86.718 Personal history of other venous thrombosis and embolism; Z68.32 Body mass index [BMI] 32.0-32.9, adult
CPT/HCPCS: 36415; 80048; 80053; 81003; 82140; 82248; 82270; 82607; 82728; 82746; 82962; 83036; 83540; 83550; 83735; 84100; 84484; 85018; 85025; 85044; 86850; 86870; 86900; 86920; 87426; 93005; 93970; 99285; J1815; P9016

== ENCOUNTER 2022-03-31 21:12 | Emergency (ER) | payer MEDICARE, MEDICAID ==
[~2022-03-31] VITALS: Ht 157.5 cm; Wt 59.0 kg
[~2022-03-31 21:12] MED LIST changes: +ATOR20TA65 PO; +BIMA2.5D4 EACHEYE; +FERR325T30 PO; +GABA-529 PO; +INSU100V40; +PANT40TA51 PO
[2022-03-31 21:48] VITALS: BP 160/59
== END 2022-04-01 00:26 | disposition left against medical advice (07) ==
LOC: ER 21:12
DX: Z53.21 Procedure and treatment not carried out due to patient leaving prior to being seen by health care provider (principal); E11.9 Type 2 diabetes mellitus without complications
CPT/HCPCS: 82962

== ENCOUNTER 2022-04-04 18:02 | Inpatient (IN) | payer MEDICARE, MEDICAID ==
[~2022-04-04] VITALS: Ht 160 cm; Wt 68.0 kg
[2022-04-04] MEDS ORDERED: SODIUM CHLORIDE 0.9% 500 ML IV ONE (22:45)
[2022-04-04 23:05] LABS: BASOPHILS % 0.3 % (0.0-2.0); EOSINOPHILS % 0.5 % (0.0-5.0); HEMATOCRIT. 38.7 % (36.0-48.0); HEMOGLOBIN. 12.5 g/dL (12.0-16.0); LYMPHOCYTES % 21.3 % (20.0-50.0); MEAN CORPUSCULAR HEMOGLOBIN 30.1 pg (28.0-32.0); MONOCYTES % 6.8 % (2.0-8.0); NEUTROPHILS % 71.1 % (40.0-76.0); PLATELET 142 x1000/uL (130-400); RED BLOOD CELL COUNT 4.16 mill/uL (4.2-5.4)
[2022-04-04 23:13] LABS: CHLORIDE 99 mEq/L (98-107)
[2022-04-05 00:46] LABS: CLARITY URINE CLOUDY (CLEAR); COLOR URINE YELLOW (YELLOW); KETONES URINE NEGATIVE (NEGATIVE); LEUKOCYTE ESTERASE URINE 3+ (NEGATIVE); NITRITE URINE NEGATIVE (NEGATIVE); OCCULT BLOOD URINE NEGATIVE (NEGATIVE); PH URINE 5.5 (4.5-8.0); PROTEIN URINE 1+ (NEGATIVE); SPECIFIC GRAVITY URINE 1.009 (1.005-1.030); UROBILINOGEN URINE 0.2 E.U./dL (0.2-1.0)
[2022-04-05] MEDS ORDERED: HYDRALAZINE HCL 50MG TABLET PO NR (01:00)
[2022-04-05] MEDS ORDERED: LEVOFLOXACIN 500MG PREMIX 100 ML IV NR (05:00)
[2022-04-05 11:50] VITALS: BP 138/47
[2022-04-05 12:00] VITALS: BP 138/47
[2022-04-05] MEDS ORDERED: DEXTROSE 50% WATER 50ML SYRINGE IV PRN (12:30)
[2022-04-05] MEDS ORDERED: ONDANSETRON HCL 4MG/2ML INJ IV PRN (12:30)
[2022-04-05] MEDS ORDERED: ACETAMINOPHEN 325MG TABLET PO PRN (12:30)
[2022-04-05] MEDS: INSULIN LISPRO 100 UNITS/ML SUBCUT SCH ×3 (12:50→22:22)
[2022-04-05] MEDS: SODIUM CHLORIDE 0.9% 1,000 ML IV SCH (15:02)
[2022-04-05] MEDS: CEFTRIAXONE 1,000 MG in DEXTROSE 5% WATER 50 ML IV SCH (15:02)
[2022-04-05 16:00] VITALS: BP 155/48
[2022-04-05] MEDS: BLOOD SUGAR DIAGNOSTIC STRIP TEST SCH ×2 (18:04→21:00)
[2022-04-05 20:00] VITALS: BP 149/62
[2022-04-06] VITALS: BP 170/53
[2022-04-06 04:00] VITALS: BP 147/43
[2022-04-06] MEDS: INSULIN LISPRO 100 UNITS/ML SUBCUT SCH ×4 (07:50→20:05)
[2022-04-06 08:00] VITALS: BP 179/56
[2022-04-06] MEDS: BLOOD SUGAR DIAGNOSTIC STRIP TEST SCH ×4 (08:14→20:07)
[2022-04-06] MEDS: SODIUM CHLORIDE 0.9% 1,000 ML IV SCH (09:00)
[2022-04-06 12:00] VITALS: BP 192/53
[2022-04-06] MEDS ORDERED: METOPROLOL TARTRATE 100MG TABLET PO SCH (12:25)
[2022-04-06] MEDS ORDERED: HYDRALAZINE HCL 50MG TABLET PO ONE (12:45)
[2022-04-06] MEDS ORDERED: HYDRALAZINE 20MG/ML VIAL IV ONE (15:15)
[2022-04-06] MEDS: CEFTRIAXONE 1,000 MG in DEXTROSE 5% WATER 50 ML IV SCH (15:39)
[2022-04-06 16:00] VITALS: BP 139/45
[2022-04-06] MEDS ORDERED: HYDRALAZINE 10 MG in SODIUM CHLORIDE 0.9% 49.5 ML IV NR (16:00)
[2022-04-06] MEDS ORDERED: AMLODIPINE 10MG TABLET PO SCH (16:00)
[2022-04-06 16:16] LABS: BASOPHILS % 0.7 % (0.0-2.0); EOSINOPHILS % 1.6 % (0.0-5.0); HEMATOCRIT. 36.3 % (36.0-48.0); HEMOGLOBIN. 11.6 g/dL (12.0-16.0); LYMPHOCYTES % 18.5 % (20.0-50.0); MEAN CORPUSCULAR HEMOGLOBIN 30.1 pg (28.0-32.0); MEAN PLATELET VOLUME 10.2 fl (7.4-10.4); MONOCYTES % 6.6 % (2.0-8.0); NEUTROPHILS % 72.6 % (40.0-76.0); RED BLOOD CELL COUNT 3.86 mill/uL (4.2-5.4); RED CELL DISTRIBUTION WIDTH 16.8 % (11.6-14.6)
[2022-04-06 16:29] LABS: PLATELET 127 x1000/uL (130-400)
[2022-04-06] MEDS: PENTOXIFYLLINE 400MG TABLET PO SCH (17:47)
[2022-04-06] MEDS: ATORVASTATIN CALCIUM 20MG TABLET PO SCH (20:06)
[2022-04-06] MEDS: METOPROLOL TARTRATE 25MG TABLET PO SCH (20:07)
[2022-04-07] MEDS: BLOOD SUGAR DIAGNOSTIC STRIP TEST SCH ×4 (07:20→20:22)
[2022-04-07] MEDS: INSULIN LISPRO 100 UNITS/ML SUBCUT SCH ×4 (07:50→21:11)
[2022-04-07 08:00] VITALS: BP 187/43
[2022-04-07] MEDS: PENTOXIFYLLINE 400MG TABLET PO SCH ×3 (08:37→18:26)
[2022-04-07] MEDS: METOPROLOL TARTRATE 25MG TABLET PO SCH ×2 (08:38→21:00)
[2022-04-07] MEDS: AMLODIPINE 5MG TABLET PO SCH ×2 (08:38→21:00)
[2022-04-07 08:45] LABS: BASOPHILS % 0.4 % (0.0-2.0); HEMATOCRIT. 36.4 % (36.0-48.0); HEMOGLOBIN. 11.4 g/dL (12.0-16.0); LYMPHOCYTES % 26.7 % (20.0-50.0); MEAN CORPUSCULAR HEMOGLOBIN 30.6 pg (28.0-32.0); MEAN CORPUSCULAR VOLUME 97.3 fL (81.0-99.0); MEAN PLATELET VOLUME 10.1 fl (7.4-10.4); NEUTROPHILS % 63.9 % (40.0-76.0); PLATELET 111 x1000/uL (130-400); RED BLOOD CELL COUNT 3.74 mill/uL (4.2-5.4); RED CELL DISTRIBUTION WIDTH 17.1 % (11.6-14.6)
[2022-04-07] MEDS ORDERED: MEGESTROL ACETATE 20MG TABLET PO SCH (10:00)
[2022-04-07] MEDS: MEGESTROL ACETATE 400 MG/10 ML UDC PO SCH (11:31)
[2022-04-07 12:00] VITALS: BP 187/45
[2022-04-07] MEDS: CLONIDINE 0.1MG TABLET PO PRN (12:12)
[2022-04-07] MEDS: SODIUM CHLORIDE 0.9% 1,000 ML IV SCH ×2 (12:16→22:16)
[2022-04-07] MEDS: CEFTRIAXONE 1,000 MG in DEXTROSE 5% WATER 50 ML IV SCH (14:24)
[2022-04-07 16:00] VITALS: BP 127/37
[2022-04-07 20:00] VITALS: BP 141/73
[2022-04-07] MEDS: ATORVASTATIN CALCIUM 20MG TABLET PO SCH (21:09)
[2022-04-07] MEDS: INSULIN GLARGINE 100 UNITS/ML SUBCUT SCH (22:26)
[2022-04-07 22:48] VITALS: BP 141/73
[2022-04-08] VITALS: BP 152/75
[2022-04-08 04:00] VITALS: BP 145/65
[2022-04-08 06:55] LABS: BASOPHILS % 0.7 % (0.0-2.0); EOSINOPHILS % 2.2 % (0.0-5.0); HEMATOCRIT. 31.2 % (36.0-48.0); HEMOGLOBIN. 10.1 g/dL (12.0-16.0); LYMPHOCYTES % 25.1 % (20.0-50.0); MEAN CORPUSCULAR HEMOGLOBIN 30.1 pg (28.0-32.0); MEAN CORPUSCULAR VOLUME 92.5 fL (81.0-99.0); MEAN PLATELET VOLUME 10.1 fl (7.4-10.4); MONOCYTES % 6.4 % (2.0-8.0); NEUTROPHILS % 65.6 % (40.0-76.0); PLATELET 100 x1000/uL (130-400); RED BLOOD CELL COUNT 3.37 mill/uL (4.2-5.4); RED CELL DISTRIBUTION WIDTH 16.7 % (11.6-14.6)
[2022-04-08] MEDS: BLOOD SUGAR DIAGNOSTIC STRIP TEST SCH ×4 (07:20→18:46)
[2022-04-08] MEDS: INSULIN LISPRO 100 UNITS/ML SUBCUT SCH ×4 (07:50→21:00)
[2022-04-08] MEDS: METOPROLOL TARTRATE 25MG TABLET PO SCH ×2 (09:47→19:00)
[2022-04-08] MEDS: MEGESTROL ACETATE 400 MG/10 ML UDC PO SCH (09:47)
[2022-04-08] MEDS: AMLODIPINE 5MG TABLET PO SCH ×2 (09:48→18:58)
[2022-04-08] MEDS: PENTOXIFYLLINE 400MG TABLET PO SCH ×3 (09:48→17:50)
[2022-04-08] MEDS ORDERED: POLYMYXIN B SULFATE 500000 UNITS/VIAL ONE ×2 (11:17→15:32)
[2022-04-08] MEDS ORDERED: VANCOMYCIN HCL 1 GM/VIAL ONE (11:17)
[2022-04-08] MEDS ORDERED: LIDOCAINE HCL 1% 50ML VIAL (10MG/ML) ONE (11:18)
[2022-04-08] MEDS ORDERED: GENTAMICIN SULF 40MG/ML 2ML VIAL ONE (11:18)
[2022-04-08] MEDS ORDERED: BUPIVACAINE HCL/PF 0.5% (5MG/ML) 10ML ONE (11:18)
[2022-04-08] MEDS: DEXT 5%/0.45% NACL 1000ML 1,000 ML IV SCH ×2 (12:00→21:51)
[2022-04-08] MEDS ORDERED: BACITRACIN 15GM TUBE TOP ONE (13:38)
[2022-04-08] MEDS: CEFTRIAXONE 1,000 MG in DEXTROSE 5% WATER 50 ML IV SCH (15:10)
[2022-04-08 16:00] VITALS: BP 183/49
[2022-04-08] MEDS ORDERED: FENTANYL CITRATE/PF 50MCG/ML 2ML VIAL ONE (16:03)
[2022-04-08] MEDS ORDERED: PROPOFOL 200MG/20ML VIAL IV ONE (16:03)
[2022-04-08] MEDS ORDERED: LIDOCAINE HCL 1% 10 MG/ML 10ML VIAL ONE (16:06)
[2022-04-08] MEDS ORDERED: LIDOCAINE HCL 2% 5ML SYRINGE IV ONE (16:07)
[2022-04-08] MEDS ORDERED: HYDROMORPHONE HCL/PF 2MG/ML CPJ IV PRN (17:15)
[2022-04-08] MEDS: CLONIDINE 0.1MG TABLET PO PRN (17:50)
[2022-04-08 20:00] VITALS: BP 169/70
[2022-04-08] MEDS: ATORVASTATIN CALCIUM 20MG TABLET PO SCH (21:00)
[2022-04-08] MEDS: INSULIN GLARGINE 100 UNITS/ML SUBCUT SCH (21:51)
[2022-04-09] VITALS: BP 150/45
[2022-04-09 04:00] VITALS: BP 175/57
[2022-04-09] MEDS: BLOOD SUGAR DIAGNOSTIC STRIP TEST SCH ×3 (06:17→17:20)
[2022-04-09 07:29] LABS: BASOPHILS % 0.2 % (0.0-2.0); EOSINOPHILS % 1.1 % (0.0-5.0); HEMATOCRIT. 34.1 % (36.0-48.0); LYMPHOCYTES % 18.8 % (20.0-50.0); MEAN CORPUSCULAR HEMOGLOBIN 30.4 pg (28.0-32.0); MEAN CORPUSCULAR VOLUME 94.3 fL (81.0-99.0); MEAN PLATELET VOLUME 10.3 fl (7.4-10.4); MONOCYTES % 4.4 % (2.0-8.0); NEUTROPHILS % 75.5 % (40.0-76.0); PLATELET 117 x1000/uL (130-400); RED BLOOD CELL COUNT 3.62 mill/uL (4.2-5.4); RED CELL DISTRIBUTION WIDTH 17.1 % (11.6-14.6)
[2022-04-09] MEDS: INSULIN LISPRO 100 UNITS/ML SUBCUT SCH ×3 (07:50→18:37)
[2022-04-09 08:00] VITALS: BP 170/59
[2022-04-09] MEDS: DEXT 5%/0.45% NACL 1000ML 1,000 ML IV SCH (08:00)
[2022-04-09] MEDS: PENTOXIFYLLINE 400MG TABLET PO SCH ×3 (08:29→18:37)
[2022-04-09] MEDS: MEGESTROL ACETATE 400 MG/10 ML UDC PO SCH (08:30)
[2022-04-09] MEDS: AMLODIPINE 5MG TABLET PO SCH (08:30)
[2022-04-09] MEDS: METOPROLOL TARTRATE 25MG TABLET PO SCH (08:34)
[2022-04-09] MEDS ORDERED: HYDR-4001 MT (11:44)
[2022-04-09] MEDS ORDERED: CEPH500C2 MT (11:44)
[2022-04-09 12:00] VITALS: BP 162/51
[2022-04-09] MEDS: CEFTRIAXONE 1,000 MG in DEXTROSE 5% WATER 50 ML IV SCH (15:30)
[2022-04-09 16:00] VITALS: BP 152/50
[2022-04-09 19:01] VITALS: BP 152/50
== END 2022-04-09 19:26 | disposition home health service (06) | DRG 255 ==
LOC: ER 18:02 → 6EST 04-05 02:27
PROVIDERS: ADMIT Internal Medicine; ATTEND Internal Medicine
PROC: 0Y6W0Z0 Detachment at Left 4th Toe, Complete, Open Approach (ICD-10-PCS; principal; 2022-04-05)
DX: E11.52 Type 2 diabetes mellitus with diabetic peripheral angiopathy with gangrene (principal); N17.0 Acute kidney failure with tubular necrosis; I13.0 Hypertensive heart and chronic kidney disease with heart failure and stage 1 through stage 4 chronic kidney disease, or unspecified chronic kidney disease; E46 Unspecified protein-calorie malnutrition; N39.0 Urinary tract infection, site not specified; I96 Gangrene, not elsewhere classified; M86.8X7 Other osteomyelitis, ankle and foot; Z20.822 Contact with and (suspected) exposure to COVID-19; E11.22 Type 2 diabetes mellitus with diabetic chronic kidney disease; I50.9 Heart failure, unspecified; N18.9 Chronic kidney disease, unspecified; R42 Dizziness and giddiness; R62.7 Adult failure to thrive; R53.81 Other malaise; F03.90 Unspecified dementia, unspecified severity, without behavioral disturbance, psychotic disturbance, mood disturbance, and anxiety; E78.00 Pure hypercholesterolemia, unspecified; I25.10 Atherosclerotic heart disease of native coronary artery without angina pectoris; I45.10 Unspecified right bundle-branch block; Z79.899 Other long term (current) drug therapy; I25.2 Old myocardial infarction; Z68.26 Body mass index [BMI] 26.0-26.9, adult; Z79.82 Long term (current) use of aspirin; Z79.4 Long term (current) use of insulin; Z95.5 Presence of coronary angioplasty implant and graft; Z98.62 Peripheral vascular angioplasty status; E11.69 Type 2 diabetes mellitus with other specified complication
CPT/HCPCS: 36415; 71045; 73630; 73721; 80048; 80053; 81003; 82962; 84484; 85025; 87070; 87075; 87077; 87186; 87426; 88304; 88311; 97162; 99285; J0360; J0696; J1170; J1580; J1815; J1956; J2704; J3010; J3370; J3490; J7030; J7040; J7060

== ENCOUNTER 2023-02-02 08:34 | Emergency (ER) | payer MEDICARE, MEDICAID ==
[~2023-02-02] VITALS: Ht 167.6 cm; Wt 77.0 kg
[~2023-02-02 08:34] MED LIST changes: -AMLO10TA80 PO; -ASPI-1497 PO; -ATOR20TA PO; +CEPH500C2 MT; -CHOL500063 PO; -CLOP-31 PO; -GABA-529 PO; +HYDR-4001 MT; -NIFE-32 PO; -NIFE30TA94 PO; -OMEP20CA14 PO
[2023-02-02 08:36] VITALS: O2SAT 99
[2023-02-02 09:38] LABS: BASOPHILS % 0.7 % (0.0-2.0); EOSINOPHILS % 1.1 % (0.0-5.0); HEMATOCRIT. 32.9 % (36.0-48.0); HEMOGLOBIN. 10.8 g/dL (12.0-16.0); LYMPHOCYTES % 10.2 % (20.0-50.0); MEAN CORPUSCULAR HEMOGLOBIN 32.5 pg (28.0-32.0); MEAN CORPUSCULAR VOLUME 99.2 fL (81.0-99.0); MEAN PLATELET VOLUME 10.1 fl (7.4-10.4); MONOCYTES % 4.5 % (2.0-8.0); NEUTROPHILS % 83.5 % (40.0-76.0); PLATELET 155 x1000/uL (130-400); RED BLOOD CELL COUNT 3.32 mill/uL (4.2-5.4); RED CELL DISTRIBUTION WIDTH 16.2 % (11.6-14.6)
[2023-02-02 09:49] LABS: CHLORIDE 112 mEq/L (98-107)
[2023-02-02 09:57] LABS: ETHANOL BLOOD < 10 mg/dL (-10)
[2023-02-02 10:26] LABS: CLARITY URINE CLOUDY (CLEAR); COLOR URINE YELLOW (YELLOW); KETONES URINE NEGATIVE (NEGATIVE); LEUKOCYTE ESTERASE URINE NEGATIVE (NEGATIVE); NITRITE URINE NEGATIVE (NEGATIVE); OCCULT BLOOD URINE NEGATIVE (NEGATIVE); PH URINE 5.5 (4.5-8.0); PROTEIN URINE 4+ (NEGATIVE); SPECIFIC GRAVITY URINE 1.015 (1.005-1.030); UROBILINOGEN URINE 0.2 E.U./dL (0.2-1.0)
[2023-02-02 11:00] VITALS: TEMP 98.4
[2023-02-02 12:09] VITALS: BP 128/79; PULSE 85; RESP 20
[2023-02-10] MEDS ORDERED: CEPH500C2 MT (10:55)
== END 2023-02-02 12:34 | disposition home or self-care (01) ==
LOC: ER 08:40
DX: E16.2 Hypoglycemia, unspecified (principal); I11.0 Hypertensive heart disease with heart failure; I50.9 Heart failure, unspecified; I25.10 Atherosclerotic heart disease of native coronary artery without angina pectoris; F03.90 Unspecified dementia, unspecified severity, without behavioral disturbance, psychotic disturbance, mood disturbance, and anxiety; E78.00 Pure hypercholesterolemia, unspecified; I25.2 Old myocardial infarction; Z79.899 Other long term (current) drug therapy
CPT/HCPCS: 36415; 71045; 80053; 80320; 81003; 82962; 84484; 85025; 87077; 87186; 93005; 99285; G0480